=== PATIENT | female | born 1955 | race Caucasian/White ===

== ENCOUNTER → 2017-10-10 09:46 | Outpatient (CLI) | payer BC, SELFPAY ==
[2017-10-10 12:14] LABS: Absolute Lymphocyte Count 1.46 X10^3/ul (0.83-4.51); Absolute Neutrophil Count 1.5 X10^3/uL (2.0-7.7); Basophil# 0.05 X10^3/uL; Basophil% 1.5 % (0-1); Hematocrit 38.6 % (37-47); Hemoglobin 12.7 g/dl (12.0-15.0); Lymphocyte # 1.46 X10^3/ul (4.0); Lymphocyte % 43.3 % (19-41); Mean Corp Hgb Conc 32.9 g/gl (32-36); Mean Corpuscular Hgb 29.7 pg (27.0-32.0); Mean Corpuscular Volume 90.4 fL (81-99); Mean Platelet Vol. 11.5 fl (6.2-12.0); Monocyte# 0.25 X10^3/uL; Monocyte% 7.4 % (0-10); Neutrophil # 1.51 X10^3/uL (2.7-7.7); Neutrophil % 44.8 % (47-70); Platelet Count 170 K/mm3 (150-450); RBC Distribution Width CV 12.7 % (11.6-14.6); RBC Distribution Width SD 41.8 fl (35.1-43.9); Red Blood Count 4.27 M/mm3 (4.2-5.4); White Blood Count 3.4 K/mm3 (4.4-11.0)
[2017-10-10 12:19] LABS: POSITIVE COUNT NO; POSITIVE DIFFERENTIAL NO; POSITIVE MORPHOLOGY NO
[2017-10-10 12:29] LABS: Anion Gap 8 (5-15); BUN 14 mg/dL (7-18); Chloride 104 mmol/L (98-107); Cholesterol 207 mg/dL (200); Creatinine, Serum 0.94 mg/dL (0.55-1.02); EST Glomerular Filtration Rate 65 mL/min (>60); Est Glom Filt Rate - Afr Amer 78 mL/min (>60); Glucose 93 mg/dL (74-106); High Density Lipoprotein 77 mg/dL; Potassium 3.8 mmol/L (3.5-5.1); Sodium Level 142 mmol/L (136-145); Triglycerides 61 mg/dL; Very Low Density Lipoprotein 12 mg/dL (5-40)
[2017-10-11 11:18] LABS: Hep C Antibodies <0.1 s/co ratio (0.0-0.9)
== END ==
PROVIDERS: Family Provider Family Medicine; PCP Family Medicine; Visit Provider Family Medicine
DX: Z00.00 Encounter for general adult medical examination without abnormal findings (principal); Z13.220 Encounter for screening for lipoid disorders
CPT/HCPCS: 36415; 80048; 80061; 85025; 86803

== ENCOUNTER → 2017-11-21 10:37 | Outpatient (CLI) | payer BC, SELFPAY ==
--- NOTE | 2017-11-21 10:39 | BI_ITS ---
MAMMOGRAPHY - BILATERAL SCREENING REASON FOR EXAM: Female, 62 years old. Routine annual screening examination. PERTINENT HISTORY: Non-contributory. TECHNIQUE: Digital bilateral breast cece (3D mammographic acquisition) in the CC and MLO projections. 2-D mediolateral oblique (MLO) and craniocaudad (CC) views of both breasts were obtained. CAD: Full Field Digital Mammography with Computer Added Detection was performed. COMPARISON: Comparison is made with prior study dated September 26, 2016 and September 23, 2015. FINDINGS: Breast Composition: The breasts are heterogeneously dense, which may obscure small masses. There are no dominant masses or suspicious calcifications. A tissue clip marker is seen within a 7.7 mm nodule in the inferior medial portion of the left breast. This is unchanged. No other significant abnormalities are identified. There has been no significant change since the prior study. BI/SCREENING MAMM (CAD), BILAT IMPRESSION: Stable bilateral screening mammogram. Yearly follow-up mammogram recommended. (A) ASSESSMENT CATEGORY: BIRADS Category 1: Negative. A letter regarding these results will be sent to the patient by the facility within 30 days. Approximately 10% of breast cancers are not detected by mammography. A normal mammogram should not delay biopsy of a clinically suspicious abnormality. [id number] Electronically Signed: Shan Campbell MD at 12:25 EDT Tel [phone], Service support ,
== END ==
PROVIDERS: Family Provider Family Medicine; PCP Family Medicine; Visit Provider Family Medicine
DX: Z12.31 Encounter for screening mammogram for malignant neoplasm of breast (principal)
CPT/HCPCS: 77063; 77067

== ENCOUNTER → 2018-01-06 09:04 | Outpatient (CLI) | payer BC, SELFPAY ==
[2018-01-06 10:24] LABS: Absolute Lymphocyte Count 2.03 X10^3/ul (0.83-4.51); Absolute Neutrophil Count 2.4 X10^3/uL (2.0-7.7); Basophil# 0.07 X10^3/uL; Basophil% 1.4 % (0-1); Eosinophil# 0.06 X10^3/uL; Eosinophils% 1.2 % (0-5); Hematocrit 39.6 % (37-47); Hemoglobin 13.3 g/dl (12.0-15.0); Lymphocyte # 2.03 X10^3/ul (4.0); Lymphocyte % 40.4 % (19-41); Mean Corp Hgb Conc 33.6 g/gl (32-36); Mean Corpuscular Hgb 30.5 pg (27.0-32.0); Mean Corpuscular Volume 90.8 fL (81-99); Mean Platelet Vol. 10.9 fl (6.2-12.0); Monocyte# 0.47 X10^3/uL; Monocyte% 9.4 % (0-10); Neutrophil # 2.38 X10^3/uL (2.7-7.7); Neutrophil % 47.4 % (47-70); Platelet Count 195 K/mm3 (150-450); RBC Distribution Width CV 12.8 % (11.6-14.6); RBC Distribution Width SD 41.8 fl (35.1-43.9); Red Blood Count 4.36 M/mm3 (4.2-5.4)
[2018-01-06 10:34] LABS: POSITIVE COUNT NO; POSITIVE DIFFERENTIAL NO; POSITIVE MORPHOLOGY NO
== END ==
PROVIDERS: Family Provider Family Medicine; PCP Family Medicine; Visit Provider Family Medicine
DX: D17.9 Benign lipomatous neoplasm, unspecified (principal)
CPT/HCPCS: 36415; 85025

== ENCOUNTER → 2018-08-13 14:34 | Outpatient (CLI) | payer BC, SELFPAY ==
--- NOTE | 2018-08-13 | LES_PTH ---
PATIENT: VALERY REINA LOC: [facility] U#:[id number] AGE/SX: 69/F ROOM: RE08/13/[address]: Dr. Donald Artis MD : 1955 BED: DIS: SPEC #: [id number] RECD: 08/13/18 14:30 STATUS: SHADI LEONEL #: [id number] SHIRLEY: 08/13/18 00:[address]: Donald Artis DEPT: SURGICAL PATHOLOGY RECD BY: Servando Squires ENTERED: 08/14/18 08:17 SP TYPE: Lesion OTHR DR: Dr. Francisco J Shelton MD Tissues: Skin of leg, NOS Procedures: Surgery Specimen Level IV HEADER OPERATION: Excision right thigh lesion PRE-OP DIAGNOSIS: Uncertain neoplasm leg TISSUE SUBMITTED: Right thigh tissue MICROSCOPIC DIAGNOSIS Skin lesion of right thigh, biopsy: Focal superficial basal cell carcinoma, completely excised. AM:judi 08/15/18 COMMENT The lesion measures <1 mm in greatest dimension. Clinical correlation is suggested. Case has been reviewed in consultation with Dr. Oneal who concurs with the above diagnosis. IDC:SJ MICROSCOPIC DESCRIPTION Slides are reviewed. GROSS DESCRIPTION Received in fixative is one container labeled with the patient's name and designated right thigh. The specimen consists of a dunn-white skin ellipse measuring 2.5 x 1 cm and up to 1 cm in thickness. The specimen is inked, serially sectioned and submitted entirely in two cassettes. Cassette 1 contains the tips of skin ellipse. / KENRICK:judi 08/14/18 TC:0 CPT: 85344
[2018-08-13 13:28] VITALS: BMI 25.4
== END ==
PROVIDERS: Family Provider Family Medicine; PCP Family Medicine; Referring Provider Surgery; Visit Provider Surgery
DX: C44.712 Basal cell carcinoma of skin of right lower limb, including hip (principal)
CPT/HCPCS: 88305

== ENCOUNTER → 2018-10-13 | Outpatient (CLI) | payer BC, SELFPAY ==
[2018-08-19 13:54] VITALS: BMI 25.4
[2018-10-13 10:24] LABS: Absolute Lymphocyte Count 1.52 X10^3/ul (0.83-4.51); Absolute Neutrophil Count 1.9 X10^3/uL (2.0-7.7); Basophil# 0.04 X10^3/uL; Eosinophil# 0.17 X10^3/uL; Eosinophils% 4.4 % (0-5); Hematocrit 36.2 % (37-47); Hemoglobin 11.8 g/dl (12.0-15.0); Lymphocyte # 1.52 X10^3/ul (4.0); Lymphocyte % 39.6 % (19-41); Mean Corp Hgb Conc 32.6 g/gl (32-36); Mean Corpuscular Hgb 29.1 pg (27.0-32.0); Mean Corpuscular Volume 89.2 fL (81-99); Mean Platelet Vol. 10.3 fl (6.2-12.0); Monocyte# 0.25 X10^3/uL; Monocyte% 6.5 % (0-10); Neutrophil # 1.86 X10^3/uL (2.7-7.7); Neutrophil % 48.5 % (47-70); Platelet Count 164 K/mm3 (150-450); RBC Distribution Width CV 13.2 % (11.6-14.6); RBC Distribution Width SD 42.7 fl (35.1-43.9); Red Blood Count 4.06 M/mm3 (4.2-5.4); White Blood Count 3.8 K/mm3 (4.4-11.0)
[2018-10-13 10:26] LABS: POSITIVE COUNT NO; POSITIVE DIFFERENTIAL NO; POSITIVE MORPHOLOGY NO
[2018-10-13 10:47] LABS: Anion Gap 2 (5-15); BUN 16 mg/dL (7-18); BUN/Creat Ratio 18.3 RATIO (10-20); Calcium,Total 8.3 mg/dL (8.5-10.1); Chloride 105 mmol/L (98-107); Cholesterol 203 mg/dL (200); Creatinine, Serum 0.88 mg/dL (0.55-1.02); EST Glomerular Filtration Rate 70 mL/min (>60); Est Glom Filt Rate - Afr Amer 84 mL/min (>60); Glucose 90 mg/dL (74-106); High Density Lipoprotein 69 mg/dL; Potassium 3.8 mmol/L (3.5-5.1); Sodium Level 139 mmol/L (136-145); Triglycerides 78 mg/dL; Very Low Density Lipoprotein 16 mg/dL (5-40)
[2018-10-13 10:53] LABS: Vitamin D,25 Hydroxy 21.7 ng/mL (29.95-100.01)
== END | disposition home or self-care (01) ==
LOC: MFPLAB 09:33
PROVIDERS: Family Provider Family Medicine; PCP Family Medicine; Visit Provider Family Medicine
DX: Z00.00 Encounter for general adult medical examination without abnormal findings (principal)
CPT/HCPCS: 36415; 80048; 80061; 82306; 85025

== ENCOUNTER → 2018-11-24 | Outpatient (CLI) | payer BC, SELFPAY ==
[2018-08-19 13:54] VITALS: BMI 25.4
--- NOTE | 2018-11-24 10:30 | BI_ITS ---
MAMMOGRAPHY - BILATERAL SCREENING REASON FOR EXAM: Female, 63 years old. Routine annual screening examination. PERTINENT HISTORY: Non-contributory. Remote left ultrasound-guided breast biopsy. TECHNIQUE: Digital bilateral breast israel (3D mammographic acquisition) in the CC and MLO projections. 2-D mediolateral oblique (MLO) and craniocaudad (CC) views of both breasts were obtained. CAD: Full Field Digital Mammography with Computer Added Detection was performed. COMPARISON: Comparison is made with prior study dated November 21, 2017 and September 26, 2016. FINDINGS: Breast Composition: The breasts are heterogeneously dense, which may obscure small masses. There are no dominant masses or suspicious calcifications. Once again, a tissue clip marker is seen within a 7.7 mm well-defined nodule in the inferior medial portion of the left breast. No other significant abnormalities are identified. There has been no significant change since the prior study. BI/SCREEN MAMM (CAD) W/ISRAEL BILAT IMPRESSION: Stable bilateral screening mammogram. Yearly follow-up mammogram recommended. (A) ASSESSMENT CATEGORY: BIRADS Category 2: Benign. A letter regarding these results will be sent to the patient by the facility within 30 days. Approximately 10% of breast cancers are not detected by mammography. A normal mammogram should not delay biopsy of a clinically suspicious abnormality. [id number] Electronically Signed: Shan Campbell, at 9:25 EDT , Service support ,
== END | disposition home or self-care (01) ==
LOC: OPBI 10:29
PROVIDERS: Family Provider Family Medicine; PCP Family Medicine; Referring Provider Family Medicine; Visit Provider Family Medicine
DX: Z12.31 Encounter for screening mammogram for malignant neoplasm of breast (principal)
CPT/HCPCS: 77063; 77067

== ENCOUNTER → 2019-02-24 | Outpatient (CLI) | payer BC, SELFPAY ==
[2018-08-19 13:54] VITALS: BMI 25.4
[2019-02-24 12:33] LABS: Absolute Lymphocyte Count 1.46 X10^3/uL (0.83-4.51); Absolute Neutrophil Count 1.9 X10^3/uL (2.0-7.7); Basophil# 0.07 X10^3/uL; Basophil% 1.8 % (0-1); Eosinophil# 0.18 X10^3/uL; Eosinophils% 4.6 % (0-5); Hematocrit 37.8 % (37-47); Hemoglobin 12.4 g/dL (12.0-15.0); Lymphocyte # 1.46 X10^3/ul (4.0); Lymphocyte % 37.1 % (19-41); Mean Corp Hgb Conc 32.8 g/dL (32-36); Mean Corpuscular Hgb 29.7 pg (27.0-32.0); Mean Corpuscular Volume 90.4 fL (81-99); Mean Platelet Vol. 11.5 fl (6.2-12.0); Monocyte# 0.37 X10^3/uL; Monocyte% 9.4 % (0-10); NRBC Flagged by Analyzer 0 % (0-5); Neutrophil # 1.85 X10^3/uL (2.7-7.7); Neutrophil % 46.8 % (47-70); Platelet Count 160 K/mm3 (150-450); RBC Distribution Width CV 12.3 % (11.6-14.6); RBC Distribution Width SD 40.6 fl (35.1-43.9); Red Blood Count 4.18 M/mm3 (4.2-5.4); White Blood Count 3.9 K/mm3 (4.4-11.0)
[2019-02-24 13:16] LABS: Vitamin D,25 Hydroxy 34.2 ng/mL (29.95-100.01)
== END | disposition home or self-care (01) ==
LOC: MFPLAB 09:39
PROVIDERS: Family Provider Family Medicine; PCP Family Medicine; Referring Provider Family Medicine; Visit Provider Family Medicine
DX: E55.9 Vitamin D deficiency, unspecified (principal)
CPT/HCPCS: 36415; 82306; 85025

== ENCOUNTER → 2019-10-16 09:15 | Outpatient (CLI) | payer BC, SELFPAY ==
[2018-08-19 13:54] VITALS: BMI 25.4
[2019-10-16 09:56] LABS: Absolute Lymphocyte Count 1.65 X10^3/uL (0.83-4.51); Absolute Neutrophil Count 1.9 X10^3/uL (2.0-7.7); Basophil# 0.07 X10^3/uL; Basophil% 1.7 % (0-1); Eosinophil# 0.12 X10^3/uL; Eosinophils% 2.9 % (0-5); Hematocrit 38.1 % (37-47); Hemoglobin 12.4 g/dL (12.0-15.0); Lymphocyte # 1.65 X10^3/ul (4.0); Lymphocyte % 40.2 % (19-41); Mean Corp Hgb Conc 32.5 g/dL (32-36); Mean Corpuscular Hgb 28.8 pg (27.0-32.0); Mean Corpuscular Volume 88.6 fL (81-99); Mean Platelet Vol. 10.5 fl (6.2-12.0); Monocyte# 0.38 X10^3/uL; Monocyte% 9.3 % (0-10); NRBC Flagged by Analyzer 0 % (0-5); Neutrophil # 1.87 X10^3/uL (2.7-7.7); Neutrophil % 45.7 % (47-70); Platelet Count 164 K/mm3 (150-450); RBC Distribution Width CV 12.2 % (11.6-14.6); RBC Distribution Width SD 39.7 fl (35.1-43.9); White Blood Count 4.1 K/mm3 (4.4-11.0)
[2019-10-16 10:34] LABS: Vitamin D,25 Hydroxy 41.4 ng/mL
[2019-10-16 10:41] LABS: ALB/GLOB Ratio 1.2 RATIO (0.9-2.4); AST(SGOT) 20 U/L (15-37); Alanine Aminotransfer ALT/SGPT 21 U/L (13-56); Albumin, Serum 3.7 g/dL (3.2-5.0); Alkaline Phosphatase 56 U/L (45-117); Anion Gap 5 (5-15); BUN 10 mg/dL (7-18); BUN/Creat Ratio 10.6 RATIO (10-20); Calcium,Total 9.4 mg/dL (8.5-10.1); Chloride 102 mmol/L (98-107); Cholesterol 232 mg/dL (200); Creatinine, Serum 0.94 mg/dL (0.55-1.02); EST Glomerular Filtration Rate 64 mL/min (>60); Est Glom Filt Rate - Afr Amer 77 mL/min (>60); Globulin 3.2 g/dL (2.2-4.2); Glucose 101 mg/dL (74-106); High Density Lipoprotein 69 mg/dL; Phosphorus 3.4 mg/dL (2.5-4.9); Potassium 3.4 mmol/L (3.5-5.1); Protein, Total 6.9 g/dL (6.4-8.2); Sodium Level 140 mmol/L (136-145); Thyroid Stim Hormone (TSH) 2.62 uIU/mL (0.358-3.74); Triglycerides 109 mg/dL; Very Low Density Lipoprotein 22 mg/dL (5-40)
== END ==
PROVIDERS: PCP Family Medicine; Referring Provider Family Medicine; Visit Provider Family Medicine
DX: Z01.419 Encounter for gynecological examination (general) (routine) without abnormal findings (principal); M85.80 Other specified disorders of bone density and structure, unspecified site
CPT/HCPCS: 36415; 80053; 80061; 82306; 84100; 84443; 85025

== ENCOUNTER → 2019-12-14 07:47 | Outpatient (CLI) | payer BC, SELFPAY ==
[2018-08-19 13:54] VITALS: BMI 25.4
--- NOTE | 2019-12-14 07:49 | BI_ITS ---
MAMMOGRAPHY - BILATERAL SCREENING 3-D TOMOSYNTHESIS REASON FOR EXAM: Female, 64 years old. Routine screening PERTINENT HISTORY: NO FM HX , LT U/S BX IN [facility] OFF[facility] 2012, HX OF HRT [id number]. TECHNIQUE: 2-D mammograms and 3-D Tomosynthesis of the breast (s) were performed. CAD was performed. COMPARISON: Multiple prior studies, the most recent from 11/24/2018 FINDINGS: The breast composition is heterogeneously dense that can obscure small breast masses. Scattered benign calcifications are seen. Left breast shows stable nodules including one which is undergone previous biopsy. Within the right breast, there is a new area of irregularity in the upper outer quadrant which needs further evaluation with spot compression views and ultrasound. A previously noted asymmetric density in the right retroglandular fat is unchanged. BI/SCREEN MAMM (CAD) W/ISRAEL BILAT IMPRESSION: New area of asymmetry in the upper-outer quadrant of the right breast needs further evaluation with spot compression views and ultrasound Left breast is stable and unchanged. ASSESSMENT CATEGORY: BIRADS Category 0: Incomplete. Need additional imaging evaluation as above. A letter regarding these results will be sent to the patient by the facility within 30 days. FOLLOW UP RECOMMENDATION: Additional imaging recommended as above. (E) Approximately 10% of breast cancers are not detected by mammography. A normal mammogram should not delay biopsy of a clinically suspicious abnormality. Electronically Signed: Yadiel Camacho MD at 10:21 EDT , Service support ,
== END ==
PROVIDERS: PCP Family Medicine; Referring Provider Family Medicine; Visit Provider Family Medicine
DX: Z12.31 Encounter for screening mammogram for malignant neoplasm of breast (principal)
CPT/HCPCS: 77063; 77067

== ENCOUNTER → 2019-12-16 13:31 | Outpatient (CLI) | payer BC, SELFPAY ==
[2018-08-19 13:54] VITALS: BMI 25.4
--- NOTE | 2019-12-16 13:33 | BI_ITS ---
MAMMOGRAPHY - UNILATERAL DIAGNOSTIC: RIGHT BREAST REASON FOR EXAM: Female, 64 years old. RT AV''S - NO FAM HX - LT U/S BX 2012 PERTINENT HISTORY: Non-contributory. TECHNIQUE: Digital examination. Mediolateral oblique (MLO) and craniocaudad (CC) views of the breast were obtained. CAD: CAD was performed on this study. COMPARISON: Mammogram from 12/14/2019 FINDINGS: Breast Composition: The breasts are heterogeneously dense, which may obscure small masses. Previously described nodule in the upper outer quadrant of the right breast persists on spot compression views and further evaluation of this area with ultrasound is recommended. BI/DIAG MAMM W/CAD, UNILAT IMPRESSION: Further ultrasonographic evaluation recommended, as described above. Recall Side: Right Breast ASSESSMENT CATEGORY: BIRADS Category 0: Incomplete. Need additional imaging evaluation. A letter regarding these results will be sent to the patient by the facility within 30 days. FOLLOW-UP RECOMMENDATION: Ultrasound recommended. (I) Approximately 10% of breast cancers are not detected by mammography. A normal mammogram should not delay biopsy of a clinically suspicious abnormality. Electronically Signed: Yadiel Camacho MD at 14:49 EDT , Service support ,
--- NOTE | 2019-12-16 13:33 | US_ITS ---
STUDY: ULTRASOUND BREAST - RIGHT REASON FOR EXAM: Female, 64 years old. Abnormal mammogram TECHNIQUE: Axial and longitudinal images of the RIGHT breast were performed with a high resolution ultrasound transducer. # OF IMAGES: 36 COMPARISON: None. FINDINGS: RIGHT Breast: Ultrasound evaluation of the right breast, in the upper-outer quadrant, shows only normal dense fibroglandular tissue. There is no suspicious shadowing solid lesion, architectural distortion, or clustered calcifications. US/Breast Limited Unilateral IMPRESSION: No suspicious sonographic findings. ASSESSMENT CATEGORY: BIRADS Category 2: Benign. A letter regarding these results will be sent to the patient by the facility within 30 days. Electronically Signed: Yadiel Camacho MD at 14:49 EDT , Service support ,
== END ==
PROVIDERS: PCP Family Medicine; Referring Provider Family Medicine; Visit Provider Family Medicine
DX: R92.8 Other abnormal and inconclusive findings on diagnostic imaging of breast (principal)
CPT/HCPCS: 76642; 77065

== ENCOUNTER 2020-04-08 08:25 | Day surgery (SDC) | payer BC, SELFPAY ==
[2018-08-19 13:54] VITALS: BMI 25.4
[2020-04-08 08:49] VITALS: BP 140/72; PULSE 55; RESP 16; TEMP 37.1; O2SAT 100; BMI 25.0
--- NOTE | 2020-04-08 08:49 | PCM.HP.STD ---
Problem List (1) Screening for intestinal cancer Status: Acute History of Present Illness Date of Admission: 04/08/20 The patient is a 64 year old F who presents for screening colonoscopy today. Her previous one was 10 years ago. She denies any abdominal pain bright red blood per rectum or melena. No chest pain cough fever. 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 Allergies latex Allergy (Unknown, Verified 03/29/20 10:38) Unknown meperidine [From Demerol] Allergy (Unknown, Verified 03/29/20 10:38) Unknown terbinafine [From Lamisil] Allergy (Unknown, Verified 03/29/20 10:38) Unknown Home Medications: Ambulatory Orders Medication Instructions Recorded calcium citrate 1,000 mg tablet 250 mg PO 4X/DAY tab 08/05/18 erythromycin 5 mg/gram (0.5 %) eye 1 applic OPHTHALMIC DAILY PRN 08/05/18 ointment multivitamin 1 tab PO DAILY 08/05/18 omeprazole 40 mg capsule,delayed 40 mg PO DAILY 08/05/18 release triamterene 37.5 1 cap PO DAILY 08/05/18 mg-hydrochlorothiazide 25 mg capsule Cholecalciferol (Vitamin D3) 2,000 unit PO DAILY 03/29/20 [Vitamin D3] Surgical History: Surgical History (Last Reviewed 08/13/18 @ 12:47 by Elizabeth Page) History of Mohs micrographic surgery for skin cancer (Acute) Z85.828, Z98.890 Right upper eye Hx of shoulder surgery (Acute) Z98.890 Right shoulder- 2002 Hx of hysterectomy (Acute) Z90.710 1991 Hx of eye surgery (Acute) Z98.890 tear gland- 1979 Smoking Status: Never smoker Tobacco Use: Non-smoker Review of Systems Constitutional: Denies: Fever HEENT: Denies: Difficulty Swallowing Cardiovascular: Denies: Chest Pain Respiratory: Denies: Cough Gastrointestinal: Denies: Abdominal Pain, Melena Endocrine: Denies: Change in Body Habitus VTE Information - Inpt Only VTE Present on Admission: No - Physical Exam Vitals/I&O's: Body Mass Index (BMI) 25.4 General: Alert, Oriented x3, Cooperative HEENT: Atraumatic Oral: Moist Mucosa Neck: Supple Lungs: Clear to auscultation, Normal air movement Cardiovascular: Regular rate, Regular Rhythm Abdomen: Bowel Sounds Present, Soft, Non Tender Extremities: No Calf Tenderness Psych/Mental Status: Normal Affect Assessment/Plan All Active Problems (Last Reviewed 08/13/18 @ 12:47 by Elizabeth Page) Screening for intestinal cancer (Acute) Skin cancer (Acute) History of Mohs micrographic surgery for skin cancer (Acute) Hx of shoulder surgery (Acute) Hx of hysterectomy (Acute) Hx of eye surgery (Acute) SOB (shortness of breath) (Acute) Anemia (Acute) Acid reflux (Acute) Ocular rosacea (Acute) Patient presents for screening colonoscopy today. She is aware of the technique, benefit, risk, alternatives. She has had an opportunity to ask and have questions answered. She presents via open access. We will proceed at her discretion. Donald Artis M.D., F.A.C.S. Procedure Criteria Procedure Type: Elective COVID Risk Discussion: The surgeon/proceduralist and patient have discussed in detail the risk of exposure to and/or potential harm posed by the COVID-19 virus with having a surgery/procedure at this time versus the risk of delaying the surgery/procedure. It is not possible to know either the risk of delaying the surgery or procedure or chance of getting an infection with perfect accuracy, but a joint decision was made between the patient and the surgeon/proceduralist to proceed at this time with the scheduled surgery/procedure as indicated on the consent form.
[2020-04-08] MEDS: Lactated Ringers 1,000 ML 100 ML IV (09:01)
[2020-04-08 09:55] VITALS: BP 112/62; BP 140/72; PULSE 63; RESP 18; TEMP 36.2; O2SAT 100
--- NOTE | 2020-04-08 09:56 | OP.CCLET_ITS ---
04/08/2020 Francisco J Lozano [address] [place] [address] Re : Colonoscopy procedure for Olivia Orozco Dear Dr. Lozano This procedure was performed on Wednesday, April 08, 2020. My impressions and recommendations are as follows: Impressions : - Hemorrhoids found on perianal exam. - The entire examined colon is normal. - No specimens collected. Recommendations : - Discharge patient to home. - Resume previous diet. - Continue present medications. - Repeat colonoscopy in 10 years for screening purposes. My findings are described in the full procedure note, which is enclosed. If I can be of further assistance, please feel free to contact me at Doctor phone number(s): Work: . Sincerely, Donald Artis MD 04/08/2020 9:55:57 AM This report has been signed electronically.
--- NOTE | 2020-04-08 09:56 | OP.COLON_ITS ---
Patient Name: Olivia Orozco Procedure Date: 04/08/2020 9:34 AM Date of : 1955 Age: 64 Procedure: Colonoscopy Indications: Screening for colorectal malignant neoplasm Providers: Donald Artis MD Referring MD: Francisco J Lozano Medicines: See the Anesthesia note for documentation of the administered medications Patient Profile: Last Colonoscopy: 10 years ago. Complications: No immediate complications. Procedure: Pre-Anesthesia Assessment: - Prior to the procedure, a History and Physical was performed, and patient medications and allergies were reviewed. The patient's tolerance of previous anesthesia was also reviewed. The risks and benefits of the procedure and the sedation options and risks were discussed with the patient. All questions were answered, and informed consent was obtained. Prior Anticoagulants: The patient has taken no previous anticoagulant or antiplatelet agents. ASA Grade Assessment: II - A patient with mild systemic disease. After reviewing the risks and benefits, the patient was deemed in satisfactory condition to undergo the procedure. After I obtained informed consent, the scope was passed under direct vision. Throughout the procedure, the patient's blood pressure, pulse, and oxygen saturations were monitored continuously. The Colonoscope was introduced through the anus and advanced to the cecum, identified by appendiceal orifice and ileocecal valve. The colonoscopy was performed without difficulty. The patient tolerated the procedure well. The quality of the bowel preparation was good. The ileocecal valve and the appendiceal orifice were photographed. Scope In: 9:39:51 AM Scope Withdrawal Time 0 hours 6 minutes 46 seconds Scope Out: 9:50:31 AM Total Procedure Duration Time 0 hours 10 minutes 40 seconds Findings: Hemorrhoids were found on perianal exam. The colon (entire examined portion) appeared normal. Impression: - Hemorrhoids found on perianal exam. - The entire examined colon is normal. - No specimens collected. Recommendation: - Discharge patient to home. - Resume previous diet. - Continue present medications. - Repeat colonoscopy in 10 years for screening purposes. Procedure Code(s): --- Professional --- 39040, Colonoscopy, flexible; diagnostic, including collection of specimen(s) by brushing or washing, when performed (separate procedure) Diagnosis Code(s): --- Professional --- Z12.11, Encounter for screening for malignant neoplasm of colon K64.9, Unspecified hemorrhoids CPT copyright 2017 [employer]. All rights reserved. The codes documented in this report are preliminary and upon head strength and conditioning coach review may be revised to meet current compliance requirements. Donald Artis MD 04/08/2020 9:55:57 AM This report has been signed electronically. Number of Addenda: 0 Note Initiated On: 04/08/2020 9:34 AM
[2020-04-08 10:00] VITALS: BP 116/74; BP 140/72; PULSE 60; RESP 18; O2SAT 100
[2020-04-08 10:04] VITALS: BP 113/68; BP 140/72; PULSE 56; RESP 18; O2SAT 100
[2020-04-08 10:10] VITALS: BP 118/69; BP 140/72; PULSE 53; RESP 18; TEMP 36.2; O2SAT 100
[2020-04-08 10:15] VITALS: BP 140/72
== END 2020-04-08 10:24 | disposition home health service (06) ==
LOC: EN 08:26 → AC 08:28
PROVIDERS: PCP Family Medicine; Referring Provider Family Medicine; Visit Provider Surgery
PROC: 0DJD8ZZ Inspection of Lower Intestinal Tract, Via Natural or Artificial Opening Endoscopic (ICD-10-PCS; CPT 45378; principal; 2020-04-08 09:25)
DX: Z12.11 Encounter for screening for malignant neoplasm of colon (principal); K64.9 Unspecified hemorrhoids; Z11.59 Encounter for screening for other viral diseases; I10 Essential (primary) hypertension; K21.9 Gastro-esophageal reflux disease without esophagitis; G25.81 Restless legs syndrome; Z78.0 Asymptomatic menopausal state; Z86.2 Personal history of diseases of the blood and blood-forming organs and certain disorders involving the immune mechanism; Z85.828 Personal history of other malignant neoplasm of skin; Z79.899 Other long term (current) drug therapy
CPT/HCPCS: 45378; 87635; C9803; J7120; J2405; U0003

== ENCOUNTER → 2020-10-10 09:17 | Outpatient (CLI) | payer BC, SELFPAY ==
[2020-10-10 12:53] LABS: Vitamin D,25 Hydroxy 31.3 ng/mL
[2020-10-10 13:02] LABS: Anion Gap 6 (5-15); BUN 14 mg/dL (7-18); BUN/Creat Ratio 15.9 RATIO (10-20); Calcium,Total 9.1 mg/dL (8.5-10.1); Chloride 102 mmol/L (98-107); Cholesterol 227 mg/dL (200); Creatinine, Serum 0.88 mg/dL (0.55-1.02); EST Glomerular Filtration Rate 69 mL/min (>60); Est Glom Filt Rate - Afr Amer 83 mL/min (>60); Glucose 82 mg/dL (74-106); High Density Lipoprotein 64 mg/dL; Magnesium 2.2 mg/dL (1.6-2.6); Potassium 3.9 mmol/L (3.5-5.1); Sodium Level 138 mmol/L (136-145); Triglycerides 121 mg/dL; Very Low Density Lipoprotein 24 mg/dL (5-40)
== END ==
PROVIDERS: PCP Family Medicine; Visit Provider Family Medicine
DX: Z01.419 Encounter for gynecological examination (general) (routine) without abnormal findings (principal)
CPT/HCPCS: 36415; 80048; 80061; 82306; 83735

== ENCOUNTER → 2020-12-27 11:14 | Outpatient (CLI) | payer BC, SELFPAY ==
--- NOTE | 2020-12-27 11:18 | BI_ITS ---
MAMMOGRAPHY - BILATERAL SCREENING REASON FOR EXAM: Female, 65 years old. Routine annual screening examination. PERTINENT HISTORY: Non-contributory. TECHNIQUE: Digital bilateral breast israel (3D mammographic acquisition) in the CC and MLO projections. 2-D mediolateral oblique (MLO) and craniocaudad (CC) views of both breasts were obtained. CAD: Full Field Digital Mammography with Computer Added Detection was performed. COMPARISON: Comparison is made with prior study dated 12/14/2019 and 11/24/2018. FINDINGS: Breast Composition: The breasts are heterogeneously dense, which may obscure small masses. There are no dominant masses or suspicious calcifications. No other significant abnormalities are identified. There has been no significant change since the prior study. BI/SCRN MAMM (CAD)W/ISRAEL BILAT IMPRESSION: Stable bilateral screening mammogram. Yearly follow-up mammogram recommended. (A) ASSESSMENT CATEGORY: BIRADS Category 1: Negative. A letter regarding these results will be sent to the patient by the facility within 30 days. Approximately 10% of breast cancers are not detected by mammography. A normal mammogram should not delay biopsy of a clinically suspicious abnormality. [id number] Electronically Signed: Shan Campbell MD at 12:11 EDT , Service support ,
== END ==
PROVIDERS: PCP Family Medicine; Referring Provider Family Medicine; Visit Provider Family Medicine
DX: Z12.31 Encounter for screening mammogram for malignant neoplasm of breast (principal)
CPT/HCPCS: 77063; 77067

== ENCOUNTER 2021-07-20 10:48 | Outpatient (CLI) | payer MEDICARE, OTHER, SELFPAY ==
--- NOTE | 2021-07-20 11:00 | BD_ITS ---
STUDY: DUAL ENERGY X-RAY ABSORPTIOMETRY / DXA REASON FOR EXAM: Female, 66 years old. Z780. Patient is postmenopausal. TECHNIQUE: Bone Mineral Density (BMD) measurements of lumbar spine and bilateral hips were obtained. COMPARISON: Comparison is made with prior study of 09/15/2013. FINDINGS: Lumbar Spine (L1-L4): g/cm2 (0.727) / T-score (-2.9) / Z-score (-1.1) Findings are suggestive of osteoporosis with a high fracture risk. Left Femur Total: g/cm2 (0.704) / T-score (-1.9) / Z-score (-0.7) Left Femoral Neck: g/cm2 (0.581) / T-score (-2.4) / Z-score (-0.9) Right Femur Total: g/cm2 (0.694) / T-score (-2.0) / Z-score (-0.8) Right Femoral Neck: g/cm2 (0.569) / T-score (-2.5) / Z-score (-1.0) The T-Scores on the most recent prior examination were: Lumbar Spine (L1-L4): There has been worsening of bone density since the previous examination. Left Femur Total: which represents an improvement of 1.7%. Right Femur Total: which represents a worsening of 1.4%. BD/Dexa Bone Density Study IMPRESSION: The patient is considered osteoporotic as outlined below according to [employer] [place] Organization (WHO) criteria with a high fracture risk. There has been worsening of bone density since the previous examination. Reference Information: The T-score is the number of standard deviations above or below the standard which is normal for young adults at their peak bone mineral density. The World Health Organization (WHO) interprets the T-scores as follows: Above -1 Normal bone density Between -1 and -2.5 Osteopenia Equal to / or below -2.5 Osteoporosis As a practical clinical guideline, osteopenia may be graded as follows: Mild -1 through -1.5 Moderate -1.6 through -2.0 Severe -2.1 through -2.4 The Z-score is the number of standard deviations above or below age-matched controls. A Z-score of less than -1.5 would be considered abnormal. References: 1. NIH Osteoporosis and Related Bone Diseases www osteo.org 2. International Society for Clinical Densitometry www iscd.org 3. National Osteoporosis Foundation www nof.org Electronically Signed: Shan Campbell MD at 15:32 EST ,
== END 2021-07-20 23:59 | disposition short-term general hospital (02) ==
PROVIDERS: PCP Family Medicine; Referring Provider Family Medicine; Visit Provider Family Medicine
DX: Z78.0 Asymptomatic menopausal state (principal)
CPT/HCPCS: 77080

== ENCOUNTER 2021-07-26 06:15 | Outpatient (CLI) | payer MEDICARE, OTHER, SELFPAY ==
--- NOTE | 2021-07-26 13:17 | STRESSREP ---
Stress Test Report Exercise myocardial perfusion stress test. 66-year-old lady with a history of abnormal EKG. Stress protocol: Resting KG demonstrates sinus bradycardia with a rate of 53 bpm resting blood pressure is 160/82 mmHg. The patient exercised according to the regular Umesh protocol for total duration of 5 minutes and 31 seconds. The maximum heart rate attained was 146 bpm which was 94% of max impact at heart rate the maximum workload was 7 metabolic equivalents. At rest there were no ST or T wave changes noted to suggest ischemia and at peak exercise 1.[address] depression was noted in the inferior lateral leads. The ST changes became more downsloping during recovery. No clinical angina was noted the test was terminated due to attainment of target heart rate and dyspnea. The peak blood pressure was 176/90 mmHg. Rate-pressure product was 25,700. Myocardial perfusion protocol. 11.5 mCi of technetium 99m sestamibi was injected at rest. The patient exercised according to regular Umesh protocol for 5-1/2 minutes and at peak exercise 34.5 mCi of technetium 99m sestamibi was injected stress images were obtained stress and rest images were reconstructed and compared in the short axis vertical long and horizontal long axis. Gated images were also obtained per Perfusion SPECT analysis: Review of the stress images demonstrate normal uptake of tracer noted in all areas of the myocardium. The resting images similarly demonstrate normal uptake of tracer in all areas of the myocardium. A small portion of apical ischemia cannot be completely excluded however. No previous infarct is noted. Gated SPECT analysis: The gated ejection fraction is 69%. Conclusion: Exercise myocardial perfusion stress test with no nuclear images notable for obvious ischemia. EKG changes suggestive of ischemia. Shortness of breath of uncertain significance noted.
== END 2021-07-26 23:59 | disposition short-term general hospital (02) ==
LOC: CVS 06:16
PROVIDERS: PCP Family Medicine; Referring Provider Family Medicine; Visit Provider Family Medicine
DX: R94.31 Abnormal electrocardiogram [ECG] [EKG] (principal)
CPT/HCPCS: 78452; 93017; A9500; A4216

== ENCOUNTER 2021-07-28 14:47 | Outpatient (CLI) | payer MEDICARE, OTHER, SELFPAY ==
--- NOTE | 2021-07-28 14:55 | RAD_ITS ---
STUDY: X-RAY CHEST REASON FOR EXAM: Female, 66 years old. Dyspnea TECHNIQUE: PA and lateral views of the chest. COMPARISON: None. FINDINGS: The lungs are clear and expanded. There is no demonstrated pleural abnormality. Normal size heart. Normal mediastinum and carlos eduardo. Normal visualized pulmonary arteries. Normal visualized aortic arch and descending thoracic aorta. There is demineralization of the osseous structures. Normal visualized ribs, clavicles, and shoulders. There is no demonstrated abnormality of the visualized soft tissue structures of the upper abdomen. RAD/Chest PA and Lateral IMPRESSION: No acute abnormality is seen. Electronically Signed: Shan Campbell MD at 16:03 [facility] ,
== END 2021-07-28 23:59 | disposition home or self-care (01) ==
LOC: RAD 14:49
PROVIDERS: PCP Family Medicine; Referring Provider Internal Medicine Cardiovascular Disease; Visit Provider Internal Medicine Cardiovascular Disease
DX: R94.39 Abnormal result of other cardiovascular function study (principal); R94.31 Abnormal electrocardiogram [ECG] [EKG]; R06.00 Dyspnea, unspecified; E78.5 Hyperlipidemia, unspecified
CPT/HCPCS: 71046

== ENCOUNTER 2021-08-03 06:41 | Day surgery (SDC) | payer MEDICARE, OTHER, SELFPAY ==
[2021-07-28 15:54] LABS: Absolute Lymphocyte Count 2.27 X10^3/uL (0.83-4.51); Basophil# 0.05 X10^3/uL; Basophil% 0.7 % (0-1); Eosinophil# 0.05 X10^3/uL; Eosinophils% 0.7 % (0-5); Hematocrit 39.1 % (37-47); Hemoglobin 13.2 g/dL (12.0-15.0); Lymphocyte # 2.27 X10^3/ul (0.83-4.51); Lymphocyte % 33.1 % (19-41); Mean Corp Hgb Conc 33.8 g/dL (32-36); Mean Corpuscular Hgb 30.2 pg (27.0-32.0); Mean Corpuscular Volume 89.5 fL (81-99); Mean Platelet Vol. 10.7 fl (6.2-12.0); Monocyte# 0.51 X10^3/uL; Monocyte% 7.4 % (0-10); NRBC Flagged by Analyzer 0 % (0-5); Neutrophil # 3.97 X10^3/uL (2.7-7.7); Platelet Count 215 K/mm3 (150-450); RBC Distribution Width CV 11.9 % (11.6-14.6); RBC Distribution Width SD 39.1 fl (35.1-43.9); Red Blood Count 4.37 M/mm3 (4.2-5.4); White Blood Count 6.9 K/mm3 (4.4-11.0)
[2021-07-28 16:21] LABS: Anion Gap 7 (5-15); BUN 13 mg/dL (7-18); Calcium,Total 9.6 mg/dL (8.5-10.1); Chloride 100 mmol/L (98-107); EST Glomerular Filtration Rate 59 mL/min (>60); Est Glom Filt Rate - Afr Amer 72 mL/min (>60); Glucose 105 mg/dL (74-106); Potassium 3.3 mmol/L (3.5-5.1); Sodium Level 138 mmol/L (136-145)
[2021-08-02 07:58] VITALS: BMI 28.5
[2021-08-03 07:00] LABS: Potassium 4.3 mmol/L (3.5-5.1)
--- NOTE | 2021-08-03 08:20 | CL.D_ITS ---
Patient Name: VALERY REINA Study Date: 08/03/2021 Performing: Emre Castro MD Ht: 63 inches 160 cm : 1955 Wt: 161.1 lbs 73 kg Age: 66 Gender: female BSA: 1.76 PROCEDURE(S) PERFORMED DC01-([id number])LHC/COR/LV CLINICAL PROFILE AND INDICATIONS Indications: Suspected CAD Heart Failure: None Stress/Imaging Date: 07/26/20ress Test with SPECT MPI: Positive Low Risk CAD Presentations: Symptom unlikely to be ischemic. CONCLUSIONS Normal coronary arteries Normal LV size, wall motion,and systolic function RECOMMENDATIONS Medical therapy DESCRIPTION OF PROCEDURE The patient arrived to the procedure lab. The risks and benefits of the procedure as well as a full d escription of our services here and current unavailability of surgical backup were fully explained to the patient and/or their significant other prior to the catheterization. The Timeout was completed, verifying the correct patient and procedure. The patient's procedural site was prepped and draped in the usual fashion. Local anesthetic was given subcutaneously to right radial region with Lidocaine 2% . Using a modified Seldinger technique, arterial access was obtained via the right radial artery, a 6 Fr sheath was inserted. Left Coronary Artery selective angiography was performed in multiple views u sing a 5 Fr. 4.0 Christine catheter. Right Coronary Artery selective angiography was then performed in mu ltiple views using a 5 Fr. 4.0 Christine catheter. Left Ventriculography was performed in SHOOK projection using a 5 Fr. Pigtail catheter. LV to AO pullback pressures were then recorded.The arterial sheath was pulled and a TR Band was applied for hemostasis w/ 9ml air CORONARY ANGIOGRAPHY DOMINANCE: Right Dominant LEFT HEART ASSESSMENT Left Ventricular Ejection Fraction: by LV Gram 60 % Normal LV wall motion Normal Left Ventricular systolic function Normal Left Ventricular systolic function LEFT MAIN: Angiographically normal LEFT ANTERIOR DESCENDING ARTERY: Angiographically normal CIRCUMFLEX ARTERY: Angiographically normal RIGHT CORONARY ARTERY: Angiographically normal COMPLICATIONS No Complications PROCEDURE MEDICATIONS Versed 1 mg IV Fentanyl 50 mcg IV Oxygen: 2 L/min via nasal cannula Heparin given IA 08/03/2021 08:01:12 Verapamil 2.5mg, Ntg 100mcgs, 3000 units of Heparin given IA 08/03/2021 08:01:12 SUMMARY OF HEMODYNAMIC DATA Time AIR REST ECG 07:02:29 Art 159/66 (100) 07:55:05 AO 142/69 (97) SA 08:03:05 LV 146/3, 18 08:09:31 LV 144/6, 17 08:09:38 LV 130/10, 20 08:10:07 LV 130/9, 19 08:10:13 LVp 136/9, 20 08:10:17 AOp 121/-21 (70) 08:10:22 Signed By Emre Castro MD On 08/03/2021 08:20:12 Emre Castro MD
== END 2021-08-03 23:59 | disposition home or self-care (01) ==
LOC: CLSP 06:43
PROVIDERS: PCP Family Medicine; Referring Provider Internal Medicine Cardiovascular Disease; Visit Provider Internal Medicine Cardiovascular Disease
DX: R94.39 Abnormal result of other cardiovascular function study (principal); R06.00 Dyspnea, unspecified; K21.9 Gastro-esophageal reflux disease without esophagitis; E78.5 Hyperlipidemia, unspecified; H81.09 Meniere's disease, unspecified ear; Z85.828 Personal history of other malignant neoplasm of skin; Z79.899 Other long term (current) drug therapy
CPT/HCPCS: 36415; 80048; 84132; 85025; 93458; 99152; 99153; J7040; C1769; C1894; Q9967

== ENCOUNTER 2021-08-14 09:19 | Outpatient (CLI) | payer MEDICARE, OTHER, SELFPAY ==
[2021-08-14 09:23] LABS: Bacteria 0 SEEN /hpf (None Seen); Mucous, Urine 0 SEEN /hpf (<or=2+); Red Blood Cells-Urine 0 SEEN /hpf (0-5); Squamous Epithelial Cells - UA 0 SEEN /hpf (5-10); White Blood Cells 0 SEEN /hpf (0-5)
[2021-08-14 12:12] LABS: Absolute Lymphocyte Count 1.46 X10^3/uL (0.83-4.51); Absolute Neutrophil Count 2.4 X10^3/uL (2.0-7.7); Basophil# 0.06 X10^3/uL; Basophil% 1.4 % (0-1); Eosinophil# 0.08 X10^3/uL; Eosinophils% 1.8 % (0-5); Hematocrit 38.2 % (37-47); Hemoglobin 12.8 g/dL (12.0-15.0); Lymphocyte # 1.46 X10^3/ul (0.83-4.51); Lymphocyte % 32.9 % (19-41); Mean Corp Hgb Conc 33.5 g/dL (32-36); Mean Corpuscular Volume 89.5 fL (81-99); Mean Platelet Vol. 10.8 fl (6.2-12.0); Monocyte# 0.42 X10^3/uL; Monocyte% 9.5 % (0-10); NRBC Flagged by Analyzer 0 % (0-5); Neutrophil % 53.9 % (47-70); Platelet Count 202 K/mm3 (150-450); RBC Distribution Width SD 38.9 fl (35.1-43.9); Red Blood Count 4.27 M/mm3 (4.2-5.4); White Blood Count 4.4 K/mm3 (4.4-11.0)
[2021-08-14 12:12] LABS: Color, Urine Yellow (Yellow); Glucose, Dipstick Normal (Normal); Ketone-Dipstick Negative (Negative); Leukocyte Esterase-Dipstick Negative /ul (Negative); Nitrite-Dipstick Negative (Negative); Occult Blood-Urine Negative /ul (Negative); Protein-Dipstick Negative (Negative); Specific Gravity, Urine 1.005 (1.002-1.030); Urine Bilirubin Dipstick Negative (Negative); Urine Clarity Clear (Clear); Urine Urobilinogen Normal (Normal)
[2021-08-14 12:33] LABS: ALB/GLOB Ratio 1.1 RATIO (0.9-2.4); AST(SGOT) 23 U/L (15-37); Alanine Aminotransfer ALT/SGPT 27 U/L (13-56); Albumin, Serum 3.6 g/dL (3.2-5.0); Alkaline Phosphatase 81 U/L (45-117); Anion Gap 5 (5-15); BUN 18 mg/dL (7-18); BUN/Creat Ratio 20.2 RATIO (10-20); Calcium,Total 8.9 mg/dL (8.5-10.1); Chloride 99 mmol/L (98-107); Cholesterol 203 mg/dL (200); Creatinine, Serum 0.89 mg/dL (0.55-1.02); EST Glomerular Filtration Rate 67 mL/min (>60); Est Glom Filt Rate - Afr Amer 82 mL/min (>60); Globulin 3.4 g/dL (2.2-4.2); Glucose 95 mg/dL (74-106); High Density Lipoprotein 57 mg/dL; Potassium 3.4 mmol/L (3.5-5.1); Sodium Level 137 mmol/L (136-145); Thyroid Stim Hormone (TSH) 2.79 uIU/mL (0.358-3.74); Triglycerides 152 mg/dL; Very Low Density Lipoprotein 30 mg/dL (5-40)
[2021-08-14 12:38] LABS: Vitamin D,25 Hydroxy 39.2 ng/mL
[2021-08-14 13:08] LABS: Hemoglobin A1c 5.9 % (3.8-5.6)
== END 2021-08-14 23:59 | disposition home or self-care (01) ==
LOC: MFPLAB 09:20
PROVIDERS: PCP Family Medicine; Visit Provider Family Medicine
DX: K21.9 Gastro-esophageal reflux disease without esophagitis (principal); E55.9 Vitamin D deficiency, unspecified; R73.09 Other abnormal glucose; E78.00 Pure hypercholesterolemia, unspecified; I10 Essential (primary) hypertension; M81.0 Age-related osteoporosis without current pathological fracture
CPT/HCPCS: 36415; 80053; 80061; 81001; 82306; 83036; 84443; 85025

== ENCOUNTER 2021-08-28 06:26 | Outpatient (CLI) | payer MEDICARE, OTHER, SELFPAY ==
--- NOTE | 2021-08-28 06:38 | MRI_ITS ---
STUDY: MRI BRAIN WITH AND WITHOUT CONTRAST REASON FOR EXAM: Female, 66 years old. benign neoplasm of meninges TECHNIQUE: Standardized multiplanar fat and water weighted pulse sequences were obtained. IV 15ml Dotarem was administered for the contrast portion of the examination. COMPARISON: 04/07/2016 FINDINGS: Normal size of the ventricles and extra-axial spaces for the patient''s age. Normal white matter tracts of the supratentorial brain. There is no evidence for recent intracranial ischemia or other cause of cytotoxic edema on diffusion weighted imaging (DWI). Normal T2* images of the brain without demonstrated susceptibility artifact. There is no demonstrated hemosiderin stain. Normal bilateral basal ganglia. Normal thalami. There is no extra-axial fluid accumulation. Normal flow voids within the major intracranial circulation suggesting patency by spin echo criteria. Normal venous enhancement. There is no change in 1.5 cm oval isointense solidly enhancing mass adjacent to the inferior left parietal lobe consistent with a meningioma. Normal sella turcica, pituitary gland, infundibular stalk, optic chiasm and hypothalamus. Normal tectal plate and pineal gland. Normal midbrain, lucia and medulla. Normal cerebellum. Normal basal cisterns. Normal bilateral temporal bones. Normal bilateral internal auditory canals. No demonstrated orbital abnormality, within the constraints of a routine brain study. Normal visualized paranasal sinuses. Normal calvarium and skull base. Normal visualized soft tissue structures. Normal visualized upper cervical spine. MRI/Brain W/WO Contrast IMPRESSION: No change in 1.5 cm left parietal meningioma. Electronically Signed: Dakotah Negro MD at 8:34 EST ,
== END 2021-08-28 23:59 | disposition home or self-care (01) ==
LOC: MRI 06:29
PROVIDERS: PCP Family Medicine; Referring Provider Family Medicine; Visit Provider Family Medicine
DX: D32.9 Benign neoplasm of meninges, unspecified (principal)
CPT/HCPCS: 70553; A9575

== ENCOUNTER → 2022-02-12 | Outpatient (CLI) | payer MEDICARE, OTHER, SELFPAY ==
--- NOTE | 2022-02-12 08:58 | BI_ITS ---
MAMMOGRAPHY - BILATERAL SCREENING REASON FOR EXAM: Female, 66 years old. Routine annual screening examination. PERTINENT HISTORY: Non-contributory. TECHNIQUE: Digital bilateral breast israel (3D mammographic acquisition) in the CC and MLO projections. 2-D mediolateral oblique (MLO) and craniocaudad (CC) views of both breasts were obtained. CAD: Full Field Digital Mammography with Computer Added Detection was performed. COMPARISON: Comparison is made with prior study dated 12/27/2020 and 12/16/2019. FINDINGS: Breast Composition: The breasts are heterogeneously dense, which may obscure small masses. There is a 7.7 mm well-defined nodule in the deep inferior medial aspect of the left breast. A tissue clip is seen within. No other significant abnormalities are identified. There has been no significant change since the prior study. BI/SCRN MAMM (CAD)W/ISRAEL BILAT IMPRESSION: Stable bilateral screening mammogram. Yearly follow-up mammogram recommended. (A) ASSESSMENT CATEGORY: BIRADS Category 2: Benign. A letter regarding these results will be sent to the patient by the facility within 30 days. Approximately 10% of breast cancers are not detected by mammography. A normal mammogram should not delay biopsy of a clinically suspicious abnormality. [id number] Electronically Signed: Shan Campbell MD at 9:43 EDT ,
== END | disposition home or self-care (01) ==
LOC: OPBI 08:56
PROVIDERS: PCP Family Medicine; Visit Provider Family Medicine
DX: Z12.31 Encounter for screening mammogram for malignant neoplasm of breast (principal)
CPT/HCPCS: 77063; 77067

== ENCOUNTER → 2022-02-13 | Outpatient (CLI) | payer MEDICARE, OTHER, SELFPAY ==
[2022-02-13 10:31] LABS: Absolute Lymphocyte Count 1.49 X10^3/uL (0.83-4.51); Absolute Neutrophil Count 1.7 X10^3/uL (2.0-7.7); Basophil# 0.05 X10^3/uL; Basophil% 1.3 % (0-1); Eosinophil# 0.16 X10^3/uL; Eosinophils% 4.3 % (0-5); Hematocrit 38.7 % (37-47); Hemoglobin 12.6 g/dL (12.0-15.0); Lymphocyte # 1.49 X10^3/ul (0.83-4.51); Lymphocyte % 39.9 % (19-41); Mean Corp Hgb Conc 32.6 g/dL (32-36); Mean Corpuscular Hgb 29.3 pg (27.0-32.0); Mean Platelet Vol. 10.9 fl (6.2-12.0); Monocyte# 0.35 X10^3/uL; Monocyte% 9.4 % (0-10); NRBC Flagged by Analyzer 0 % (0-5); Neutrophil # 1.67 X10^3/uL (2.7-7.7); Neutrophil % 44.8 % (47-70); Platelet Count 189 K/mm3 (150-450); RBC Distribution Width CV 13.2 % (11.6-14.6); White Blood Count 3.7 K/mm3 (4.4-11.0)
[2022-02-13 10:42] LABS: Bacteria 0 SEEN /hpf (None Seen); Mucous, Urine 0 SEEN /hpf (<or=2+); Red Blood Cells-Urine 0 SEEN /hpf (0-5)
[2022-02-13 10:56] LABS: Hemoglobin A1c 5.9 % (3.8-5.6)
[2022-02-13 11:01] LABS: Vitamin D,25 Hydroxy 33.7 ng/mL
[2022-02-13 11:05] LABS: ALB/GLOB Ratio 1.2 RATIO (0.9-2.4); AST(SGOT) 18 U/L (15-37); Alanine Aminotransfer ALT/SGPT 20 U/L (13-56); Albumin, Serum 3.7 g/dL (3.2-5.0); Alkaline Phosphatase 51 U/L (45-117); Anion Gap 4 (5-15); BUN 12 mg/dL (7-18); BUN/Creat Ratio 12.2 RATIO (10-20); Calcium,Total 9.7 mg/dL (8.5-10.1); Chloride 103 mmol/L (98-107); Cholesterol 209 mg/dL (200); Creatinine, Serum 0.98 mg/dL (0.55-1.02); EST Glomerular Filtration Rate 60 mL/min (>60); Est Glom Filt Rate - Afr Amer 73 mL/min (>60); Glucose 81 mg/dL (74-106); High Density Lipoprotein 67 mg/dL; Magnesium 2.4 mg/dL (1.6-2.6); Protein, Total 6.7 g/dL (6.4-8.2); Sodium Level 139 mmol/L (136-145); Triglycerides 103 mg/dL; Very Low Density Lipoprotein 21 mg/dL (5-40)
[2022-02-13 12:26] LABS: Color, Urine Yellow (Yellow); Glucose, Dipstick Normal (Normal); Ketone-Dipstick Negative (Negative); Leukocyte Esterase-Dipstick 100 /ul (Negative); Nitrite-Dipstick Negative (Negative); Occult Blood-Urine Negative /ul (Negative); Protein-Dipstick Negative (Negative); Specific Gravity, Urine 1.005 (1.002-1.030); Urine Bilirubin Dipstick Negative (Negative); Urine Clarity Sl. Cloudy (Clear); Urine Urobilinogen Normal (Normal)
[2022-02-13 12:35] LABS: Squamous Epithelial Cells - UA 0-5 SEEN /hpf (5-10); White Blood Cells 10-25 SEEN /hpf (0-5)
[2022-02-13 12:50] LABS: Microalbumin,Random Urine < 5.0 mg/L (NO RANGE EST.)
== END | disposition home or self-care (01) ==
LOC: MFPLAB 08:51
PROVIDERS: PCP Family Medicine; Visit Provider Family Medicine
DX: I10 Essential (primary) hypertension (principal); R73.02 Impaired glucose tolerance (oral); K21.9 Gastro-esophageal reflux disease without esophagitis; M81.0 Age-related osteoporosis without current pathological fracture; E78.00 Pure hypercholesterolemia, unspecified
CPT/HCPCS: 36415; 80053; 80061; 81001; 82043; 82306; 83036; 83735; 85025

== ENCOUNTER 2022-12-28 15:49 | Outpatient (CLI) | payer MEDICARE, OTHER, SELFPAY | END 2022-12-28 23:59 | disposition home or self-care (01) | LOC: LABSPEC 15:52 | PROVIDERS: PCP Family Medicine; Referring Provider Family Medicine; Visit Provider Family Medicine | DX: R30.0 Dysuria (principal); J02.9 Acute pharyngitis, unspecified | CPT/HCPCS: 87077; 87086; 87088; 87186 ==

== ENCOUNTER → 2023-01-15 | Outpatient (CLI) | payer MEDICARE, OTHER, SELFPAY ==
--- NOTE | 2023-01-15 11:42 | RAD_ITS ---
STUDY: X-RAY CHEST REASON FOR EXAM: Female, 67 years old. Cough. TECHNIQUE: Frontal and lateral views of the chest. COMPARISON: Chest dated July 2021. FINDINGS: The lungs are clear and expanded. There is no demonstrated pleural abnormality. Normal size heart. Normal mediastinum and carlos eduardo. Normal visualized pulmonary arteries. Normal visualized aortic arch and descending thoracic aorta. Normal visualized thoracic spine. Normal visualized ribs, clavicles, and shoulders. No abnormality of the visualized soft tissue structures of the upper abdomen. RAD/Chest PA and Lateral IMPRESSION: No interval change. No active or acute cardiopulmonary disease. Electronically Signed: Eliecer Youngblood MD at 14:36 EDT ,
[2023-01-15 15:30] LABS: Absolute Lymphocyte Count 3.74 X10^3/uL (0.83-4.51); Absolute Neutrophil Count 4.3 X10^3/uL (2.0-7.7); Basophil# 0.09 X10^3/uL; Eosinophil# 0.07 X10^3/uL; Eosinophils% 0.8 % (0-5); Hemoglobin 13.3 g/dL (12.0-15.0); Lymphocyte # 3.74 X10^3/ul (0.83-4.51); Lymphocyte % 41.1 % (19-41); Mean Corp Hgb Conc 31.7 g/dL (32-36); Mean Corpuscular Hgb 29.2 pg (27.0-32.0); Mean Corpuscular Volume 92.3 fL (81-99); Mean Platelet Vol. 10.8 fl (6.2-12.0); Monocyte% 8.8 % (0-10); NRBC Flagged by Analyzer 0 % (0-5); Neutrophil # 4.28 X10^3/uL (2.7-7.7); Platelet Count 273 K/mm3 (150-450); RBC Distribution Width CV 12.6 % (11.6-14.6); Red Blood Count 4.55 M/mm3 (4.2-5.4); White Blood Count 9.1 K/mm3 (4.4-11.0)
[2023-01-15 15:56] LABS: ALB/GLOB Ratio 1.1 RATIO (0.9-2.4); AST(SGOT) 17 U/L (15-37); Alanine Aminotransfer ALT/SGPT 20 U/L (13-56); Albumin, Serum 3.6 g/dL (3.2-5.0); Alkaline Phosphatase 56 U/L (45-117); Anion Gap 7 (5-15); BUN 18 mg/dL (7-18); BUN/Creat Ratio 16.1 RATIO (10-20); Chloride 99 mmol/L (98-107); Creatinine, Serum 1.12 mg/dL (0.55-1.02); EST Glomerular Filtration Rate 52 mL/min (>60); Est Glom Filt Rate - Afr Amer 63 mL/min (>60); Globulin 3.4 g/dL (2.2-4.2); Glucose 92 mg/dL (74-106); Potassium 3.1 mmol/L (3.5-5.1); Sodium Level 137 mmol/L (136-145); Thyroid Stim Hormone (TSH) 2.51 uIU/mL (0.358-3.74)
== END | disposition home or self-care (01) ==
LOC: MTLAB 11:38
PROVIDERS: PCP Family Medicine; Referring Provider Family Medicine; Visit Provider Family Medicine
DX: R05.8 Other specified cough (principal); R22.1 Localized swelling, mass and lump, neck; R73.03 Prediabetes
CPT/HCPCS: 36415; 71046; 80053; 83036; 84443; 85025

== ENCOUNTER → 2023-03-01 | Outpatient (CLI) | payer MEDICARE, OTHER, SELFPAY ==
[2023-03-01 10:17] LABS: Anion Gap 3 (5-15); BUN 14 mg/dL (7-18); BUN/Creat Ratio 13.7 RATIO (10-20); Chloride 102 mmol/L (98-107); Creatinine, Serum 1.02 mg/dL (0.55-1.02); EST Glomerular Filtration Rate 58 mL/min (>60); Est Glom Filt Rate - Afr Amer 70 mL/min (>60); Glucose 104 mg/dL (74-106); Potassium 3.5 mmol/L (3.5-5.1); Sodium Level 138 mmol/L (136-145)
== END | disposition home or self-care (01) ==
LOC: MFPLAB 08:51
PROVIDERS: PCP Family Medicine; Visit Provider Family Medicine
DX: I10 Essential (primary) hypertension (principal)
CPT/HCPCS: 36415; 80048

== ENCOUNTER → 2023-03-06 | Outpatient (CLI) | payer MEDICARE, OTHER, SELFPAY ==
--- NOTE | 2023-03-06 10:03 | BI_ITS ---
MAMMOGRAPHY - BILATERAL SCREENING REASON FOR EXAM: Female, 67 years old. Routine annual screening examination. PERTINENT HISTORY: Non-contributory. Prior right ultrasound-guided breast biopsy. TECHNIQUE: Digital bilateral breast israel (3D mammographic acquisition) in the CC and MLO projections. 2-D mediolateral oblique (MLO) and craniocaudad (CC) views of both breasts were obtained. CAD: Full Field Digital Mammography with Computer Added Detection was performed. COMPARISON: Comparison is made with prior study February 12, 2022 and December 27, 2020. FINDINGS: Breast Composition: The breasts are heterogeneously dense, which may obscure small masses. There are no dominant masses or suspicious calcifications. A tissue clip marker is once again seen within a 7.4 mm well-defined nodule in the deep inferior medial aspect of the left breast. No other significant abnormalities are identified. There has been no significant change since the prior study. BI/SCRN MAMM (CAD)W/ISRAEL BILAT IMPRESSION: Stable bilateral screening mammogram. Yearly follow-up mammogram recommended. (A) ASSESSMENT CATEGORY: BIRADS Category 2: Benign. A letter regarding these results will be sent to the patient by the facility within 30 days. Approximately 10% of breast cancers are not detected by mammography. A normal mammogram should not delay biopsy of a clinically suspicious abnormality. [id number] Electronically Signed: Shan Campbell MD at 11:12 EDT ,
== END | disposition home or self-care (01) ==
LOC: OPBI 10:02
PROVIDERS: PCP Family Medicine; Referring Provider Family Medicine; Visit Provider Family Medicine
DX: Z12.31 Encounter for screening mammogram for malignant neoplasm of breast (principal)
CPT/HCPCS: 77063; 77067

== ENCOUNTER → 2023-05-20 | Outpatient (CLI) | payer MEDICARE, OTHER, SELFPAY ==
--- NOTE | 2023-05-20 15:25 | ST.MBS ---
Modified Barium Swallow Patient Information Study Date: 05/20/23 Study Time: 13:00 Direct Billable Minutes: 75 Total Minutes procedure & reportin Diagnosis: Dysphagia R13.10, GERD K21.9 Referring Physician: Donald Artis Reason for Referral: Objectively assess swallow function, assess risk for aspiration, and determine recommendations for least restrictive diet textures and compensatory strategies to improve safety of swallow. Medical History: PMH: Abnormal nuclear stress test (07/26/21), Anemia, Dysphagia, HTN, GERD, HLD, Meniere syndrome, Ocular rosacea, Screening for intestinal cancer, Skin cancer (basal cell carcinoma removed from face 6X per patient), SOB (shortness of breath). The patient is a 67-year-old female being seen by Dr. Artis for GERD. She recently weaned off of her GERD medications due to her concerns for the negative long-term effects of these medications. After weaning off the medication, she began to quickly feel retention of foods return. She feels that they get hung up at the level of her chest. She feels that liquids go down well. Dr. Artis is recommending EGD with possible biopsy due to concerns for eosinophilic esophagitis. First, she has been referred for MBSS to further assess swallow function. Current Diet Ordered: Regular textures / Thin liquids Dentition: Natural Teeth Mental Status: WNL Respiratory Status: Oxygenating on Room Air Penetration-Aspiration Scale Penetration-Aspiration Scale: OBJECTIVE ASSESSMENT OF SWALLOW FUNCTION (QUANTITATIVE ? PER TRIAL): PENETRATION / ASPIRATION SCALE (BANKS): 1 = does not enter airway 2 = enters airway/above vocal folds/ejected 3 = enters airway/above vocal folds/not ejected 4 = enters airway/contacts vocal folds/ejected 5 = enters airway/contacts vocal folds/not ejected 6 = enters airway/below vocal folds/ejected 7 = enters airway/below vocal folds/not ejected despite effort 8 = enters airway/below vocal folds/no effort VIDEOFLOROSCOPIC SCALE SCORE (BANKS): Grade I = aspiration of material that has penetrated into the laryngeal vestibule, intact cough reflex Grade II = aspiration < 10 % of the bolus, intact cough reflex Grade III = aspiration of < 10 % of the bolus, reduced cough reflex or aspiration of > 10 % of the bolus, intact cough reflex Grade IV = aspiration of > 10 % of the bolus, reduced cough reflex Penetration-Aspiration Scale Score Thin Liquid via teaspoon: Result: 1= does not enter airway Thin Liquid via teaspoon Trial 2: Result: 1= does not enter airway Thin Liquid via large single sip: cup: Result: 1= does not enter airway Thin Liquid via sequential sips: cup: Result: 1= does not enter airway Comment: ESOPHAGEAL SCREEN: Retrograde flow of thin liquid bolus from the lower esophageal sphincter to the mid esophagus with retention in the mid-lower esophagus. [place] Thick Liquid via large single sip: cup: Result: 1= does not enter airway Pudding via teaspoon: Result: 1= does not enter airway Comment: ESOPHAGEAL SCREEN: Complete clearance. 1/2 Cookie with barium pudding coating: Result: 1= does not enter airway Comment: ESOPHAGEAL SCREEN: Complete clearance. Thin Liquid via single sip: straw: Result: 1= does not enter airway Oral Phase Labial Seal: No Labial Escape Tongue Control During Bolus Hold: Cohesive bolus between tongue to palatal seal Bolus Preparation/Mastication: Timely and efficient chewing and mashing Bolus Transport/Lingual Motion: Brisk tongue motion Oral Residue: Residue collection on oral structures (piecemeal deglutition with large sips) Pharyngeal Phase Initiation of Pharyngeal Swallow: Bolus head in pyriforms (mildly/nectar thick) Soft Palate Elevation: No bolus between soft palate and pharyngeal wall Laryngeal Elevation: Comp. Superior move thyroid cart w/comp. apprx arytenoid cart-epig pet Anterior Hyoid Excursion: Complete anterior movement Epiglottic Movement: Complete inversion Laryngeal Vestibule Closure at Height of Swallow: Complete; no air/contrast in laryngeal vestibule Pharyngeal Stripping Wave: Present - complete Pharyngoesophageal Segment Opening: Complete distension and complete duration; no obstruction of flow Tongue Base Retraction: Trace column of contrast between tongue base & post. pharyngeal wall Pharyngeal Residue: Trace residue within or on pharyngeal structures Esophageal Phase Esophageal Clearance: Esophageal retention w/ retrograde flow below pharyngoesophageal seg. Diagnosis/Impression Diagnosis: Oropharyngeal swallow function grossly WNL, Esophageal dysphagia R13.14 Impression: The patient's oropharyngeal swallow is grossly WNL. She independently consumes large sips requiring two swallows to clear them from the oral cavity; however, swallow onset with thin liquids is timely and, throughout all trials, she maintained good airway closure during the swallow. No aspiration or laryngeal penetration observed. Trace pharyngeal residues after the swallow. The esophageal phase is primarily marked by... -Retrograde flow of thin barium through the lower esophageal sphincter with retention in the mid and lower esophagus. -Small C-P bar present at C5, which did not appear to impact bolus clearance through the upper esophageal sphincter. Recommendations Diet: Regular Textures and Thin Liquids Compensatory Strategies: Small Bites, Small Sips, Slow Rate, Sitting upright and Remain sitting upright for 30 minutes after PO intake Recommend Repeat Modified Barium Swallow: No Need for Skilled Speech Therapy Services: No Recommended Referrals: GI Consult (Continue to follow with Dr. Artis for planned EGD.) Education Completed: 1. Described result of evaluation. Status Active ST Patient: Active Contact Information [facility] Speech Therapy:: Amberly Ruiz M.A. [facility] [employer] TECHNICIAN Speech-Language Pathologist [facility] [address] [place] [address] [email or web address] [phone]
== END | disposition home or self-care (01) ==
LOC: RAD 12:46
PROVIDERS: PCP Family Medicine; Referring Provider Surgery; Visit Provider Surgery
DX: R13.10 Dysphagia, unspecified (principal)
CPT/HCPCS: 74230; 92611

== ENCOUNTER 2023-06-20 09:20 | Day surgery (SDC) | payer MEDICARE, OTHER, SELFPAY ==
[2023-06-20] VITALS (8 sets, daily range): BP systolic 87–139; BP diastolic 56–84; PULSE 55–62; RESP 16; TEMP 36–36.8; O2SAT 96–100; BMI 28.5
[2023-06-20] MEDS: Lactated Ringers 1,000 ML 15 ML IV (09:42)
--- NOTE | 2023-06-20 09:56 | PCM.HP.BLA ---
History and Physical Date of Admission: 06/20/23 Visit Reasons: Gastroesophageal reflux disease (GERD) Chief Complaint: GERD Is patient in pain?: No Allergies latex Allergy (Unknown, Verified 05/08/23 08:23) Rashmeperidine [From Demerol] Allergy (Unknown, Verified 05/08/23 08:23) Nausea/Vom/Diarrheaterbinafine [From Lamisil] Allergy (Unknown, Verified 05/08/23 08:23) Rashlosartan Adverse Reaction (Intermediate, Verified 05/08/23 08:23) Chest tightness, urinary frequency/incontinence Medications calcium citrate 1,000 mg tablet 250 mg PO 4X/DAY 08/05/18 [History Confirmed 05/08/23] erythromycin 5 mg/gram (0.5 %) eye ointment 1 applic ophthalmic (eye) DAILY PRN roseca 08/05/18 [History Confirmed 05/08/23] multivitamin 1 tab PO DAILY 08/05/18 [History Confirmed 05/08/23] triamterene 37.5 mg-hydrochlorothiazide 25 mg capsule (Dyazide) 1 cap PO DAILY 08/05/18 [History Confirmed 05/08/23] cholecalciferol (vitamin D3) 50 mcg (2,000 unit) capsule 2,000 unit PO DAILY 03/29/20 [History Confirmed 05/08/23] alendronate 70 mg tablet (Fosamax) 70 mg PO QWEEK 05/08/23 [History Confirmed 05/08/23] omeprazole 40 mg capsule,delayed release 20 mg PO DAILY 05/08/23 [History Confirmed 05/08/23] [facility] Medical History (Updated 05/08/23 @ 08:33 by Rahel Mcmillan) Abnormal nuclear stress test (07/26/21) Anemia Dysphagia Essential hypertension GERD (gastroesophageal reflux disease) Hyperlipidemia Meniere syndrome Ocular rosacea Screening for intestinal cancer Skin cancer SOB (shortness of breath) Surgical History History of colonoscopy (2019) History of esophageal dilatation History of esophagogastroduodenoscopy (EGD) History of left heart catheterization (08/03/21) History of Mohs micrographic surgery for skin cancer Hx of eye surgery Hx of hysterectomy Hx of shoulder surgery Family History (Updated 05/08/23 @ 08:15 by Lois Ferrell) Mother Heart disease Hypertension Thyroid disorder CVA (cerebral vascular accident) High cholesterolFather COPD (chronic obstructive pulmonary disease)Brother Diabetes Social History Smoking Status: Never smoker second hand exposure: No alcohol intake: current alcohol intake frequency: a few times a month substance use type: does not use caffeine: Yes what type of physical activity do you participate in: walking and running frequency: 5-6 times per week duration: 30-45 minutes/day seatbelt use: always HPI HPI HPI: 67-year-old female is being referred by Dr Francisco J Lozano for surgical consultation regarding gastroesophageal reflux disease and a written copy my surgical consult recommendations will return to him. It is of note that I assisted the patient most recently April 08, 2020 with a colonoscopy demonstrating mild hemorrhoids but otherwise a normal colon. Patient states that she has perhaps had 3 or even 4 upper endoscopies in the past. Remotely she was seen by roll clamp operator Carlo Pruitt but then has had other gastroenterology care more recently. She states and she describes eosinophils and multiple rings. Does not appear however that she was treated with Flonase or referred to an government program manager to identify the potential food group. She has been on a PPI omeprazole for 15 years at least. She tried cutting back from 40 mg to 20 mg successfully and then she tried in February to going every other day and then March she tried to stop and immediately had recurrence of symptoms with food getting caught. She states that she has previously had to have balloon dilatation as well. No bright red blood per rectum or melena. No unexpected weight loss. She states if anything she is slowly gained 6 or 7 pounds. She states she had a heart catheterization last year not demonstrating any critical disease but diffusely small vessels. She states she otherwise enjoys good health. Denies DVT. ROS General General: No weight change, appetite, fatigue, colon cancer, breast cancer or weakness HEENT HEENT: Yes difficulty swallowing; No eye injury, eye surgery, swollen glands or hoarseness Endo Endocrine: No thyroid disease, diabetes mellitus, thyroid cancer, Hair loss, heat intolerance or cold intolerance Skin Skin: Yes changing moles; No rash Musc Musculoskeletal: Yes arthritis; No back problems, rheumatoid arthritis, gout or joint pain Cardio Cardiovascular: No murmur, pacemaker, heart disease, atrial fibrillation, high blood pressure, heart attack, heart stent, palpitations, shortness of breat with exertion or chest pain Psych Psychiatric: No depression, anxiety or hearing voices Resp Respiratory: Yes shortness of breath, No sleep apnea, No cough, No COPD, No asthma, No emphysema and No wheezing Gastro Gastrointestinal: No abdominal pain, No nausea or vomiting, No diarrhea, Yes constipation, No blood in stool, Yes acid reflux, No hemorrhoids, No ulcers, No gallbladder problem and No black,tarry stools Gino Hematologic: No blood thinners, No blood disorders, No bleeding, No anemia and No blood clots Neuro Neurologic: No system reviewed and no additional complaints, except as documented, No as per HPI, No abnormal gait, No abnormal hearing, No abnormal movements, No abnormal speech, No behavioral changes, No burning sensations, No confusion, No convulsions, No disequilibrium, No dizziness, No localized weakness, No frequent falls, No headache(s), No lack of coordination, No loss of vision, No memory loss, No numbness, No other visual disturbances, No radicular pain, No restless legs, No sensory deficit, No syncope, No tingling, No tremor(s), No weakness and No other Exam Const General: cooperative, healthy appearing, comfortable and no acute distress [facility] Head: normal to inspection Eyes General: appearance normal, both eyes and all related structures Neck Neck: normal visual inspection Resp Effort & Inspection: normal respiratory effort Auscultation: clear to auscultation bilaterally Cardio Rate: regular rate Rhythm: regular rhythm GI Inspection: normal to inspection Palpation: soft and no hepatosplenomegaly Musc Cervical Spine: normal cervical lordosis Skin General: no rashes or lesions noted Neuro General: patient alert, patient awake and patient oriented x3 Extrem General: no calf tenderness Psych Appearance: grossly normal Assessment and Plan Assessment and Plan (1) GERD (gastroesophageal reflux disease): Status: Acute Qualifiers: Esophagitis presence: esophagitis presence not specified Qualified Code(s): K21.9 - Gastro-esophageal reflux disease without esophagitis Plan: The patient's discussion sounds like she has eosinophilic esophagitis. I am recommending to that we obtain a barium swallow for definition of this area. I then do propose for her a esophagogastroduodenoscopy with possible biopsy. In great detail however I did discuss with her the potential risk of dilatation in the presence of eosinophilic esophagitis. We would want to approach that with caution. I do not want her to have excess inflammation occurring and so she has been instructed to return to her normal omeprazole dosing in the short period. It may well be that she needs to remain on PPIs and potentially be treated with medication like Flonase and a swallow oral technique. Likely also recommend government program manager referral if eosinophilic esophagitis is identified. 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 She has had an opportunity to ask and have questions answered. I appreciate the opportunity of assisting with her surgical care and we will schedule and proceed as noted. Copy: Dr Francisco J Artis M.D., F.A.C.S. I have examined the patient and the H&P has been reviewed. There are no clinical changes since date of exam. Donald Artis M.D., F.A.C.S.
--- NOTE | 2023-06-20 10:30 | IMM_PTH ---
PATHOLOGY RESULTS PATIENT: VALERY REINA LOC: EN U#:[id number] AGE/SX: 67/F ROOM: RE06/20/[address]: Dr. Donald Artis MD : 1955 BED: DIS: 06/20/2023 SPEC #: [id number] RECD: 06/20/23 13:17 STATUS: SHADI REQ #: [id number] SHIRLEY: 06/20/23 10:[address]: Donald Artis DEPT: IMMUNOHISTOCHEMISTRY RECD BY: Charo Neff ENTERED: 06/20/23 13:18 SP TYPE: IMMUNO OTHR DR: Dr. Francisco J Lozano MD Tissues: Stomach, NOS Procedures: H Pylori (initial) PHYSICIAN & INSTITUTION [place] [id number] SPECIMEN INFORMATION: Tissue Source: B - Antrum Clinical Info: GERD Specimen Number: [id number] CPT code: 80239 METHODOLOGY: Deparaffinized sections of prefer/formalin-fixed tissue or PAP/DQ stained slides are incubated with monoclonal/polyclonal antibodies/oligonucleotide probes. Localization is made via biotin free immunoperoxidase method. Appropriate controls are performed and reacted as expected. Results on target cell population are indicated in the following table: RESULTS: ANTIBODY / CLONE RESULT Block B H Pylori (polyclonal) negative These tests were developed and their performance characteristics determined by [facility]. They may not have been cleared or approved by the U.S. Food and Drug Administration. The FDA has determined that such clearance or approval is not necessary. The above immunohistochemical/dualISH markers are ordered and reviewed by the Pathologist. INTERPRETATION: B. Antrum, biopsy: Negative for Helicobacter pylori organisms. SJ:judi 06/21/2023
--- NOTE | 2023-06-20 10:30 | EGD_PTH ---
PATHOLOGY RESULTS PATIENT: VALERY REINA LOC: EN U#:[id number] AGE/SX: 67/F ROOM: RE06/20/[address]: Dr. Donald Artis MD : 1955 BED: DIS: 06/20/2023 SPEC #: [id number] RECD: 06/20/23 12:31 STATUS: SHADI CASTANEDA #: [id number] SHIRLEY: 06/20/23 10:[address]: Donald Artis DEPT: SURGICAL PATHOLOGY RECD BY: Camila Erwin ENTERED: 06/20/23 12:33 SP TYPE: EGD BIOPSY OT DR: Dr. Francisco J Lozano MD Tissues: Duodenum, NOS Gastric mucous membrane Gastric mucous membrane Esophageal mucous membrane Esophageal mucous membrane Procedures: Surgery Specimen Level IV HEADER OPERATION: EGD with biopsies PRE-OP DIAGNOSIS: GERD TISSUE SUBMITTED: A - Duodenum biopsy, B - Antrum biopsy for H. pylori and path, C - Greater curvature polyp biopsy, D - Distal esophagus biopsy, E - Mid esophagus biopsy MICROSCOPIC DIAGNOSIS A. Duodenum, biopsy: A fragment of duodenal mucosa with mild Oswaldo gland hyperplasia. B. Antrum, biopsy: Mild gastritis. See microscopic description and comment. C. Greater curvature polyp, biopsy: Fundic gland polyp. D. Distal esophagus, biopsy: Fragments of squamous epithelium with focal congestion. E. Mid esophagus, biopsy: Fragments of benign squamous epithelium. SJ:judi 06/21/2023 COMMENT B. The results of immunohistochemistry for Helicobacter pylori will be reported separately ([id number]). MICROSCOPIC DESCRIPTION Slides are reviewed. B. The specimen shows fragments of gastric mucosa with chronic inflammatory cell infiltrates in the lamina propria consisting of lymphocytes and plasma cells, consistent with mild chronic gastritis. GROSS DESCRIPTION A - Received in fixative is one container labeled with the patient's name and designated duodenum biopsy. The specimen consists of one irregular fragment of light dunn soft tissue that measures 0.3 x 0.3 x 0.1 cm. The specimen is totally submitted in one cassette. B - Received in fixative is one container labeled with the patient's name and designated antrum biopsy. The specimen consists of one irregular fragment of light dunn soft tissue that measures 0.3 x 0.3 x 0.1 cm. The specimen is totally submitted in one cassette. C - Received in fixative is one container labeled with the patient's name and designated greater curvature polyp biopsy. The specimen consists of two irregular fragments of light dunn soft tissue that in aggregate measure 0.3 x 0.3 x 0.1 cm. The specimen is totally submitted in one cassette. D - Received in fixative is one container labeled with the patient's name and designated distal esophagus biopsy. The specimen consists of multiple irregular fragments of light dunn soft tissue that in aggregate measure 1.0 x 0.3 x 0.1 cm. The specimen is totally submitted in one cassette. E - Received in fixative is one container labeled with the patient's name and designated mid esophagus biopsy. The specimen consists of two irregular fragments of light dunn soft tissue that in aggregate measure 0.4 x 0.3 x 0.1 cm. The specimen is totally submitted in one cassette. / KENRICK:judi 06/20/2023 TC:3 CPT: 29155 x5
--- NOTE | 2023-06-20 10:44 | OP.EGD_ITS ---
Patient Name: Olivia Orozco Procedure Date: 06/20/2023 10:24 AM Date of : 1955 Age: 67 Procedure: Upper GI endoscopy Indications: Heartburn Providers: Donald Artis MD Referring MD: Donald Artis MD Medicines: See the Anesthesia note for documentation of the administered medications Complications: No immediate complications. Procedure: Pre-Anesthesia Assessment: - Prior to the procedure, a History and Physical was performed, and patient medications and allergies were reviewed. The patient's tolerance of previous anesthesia was also reviewed. The risks and benefits of the procedure and the sedation options and risks were discussed with the patient. All questions were answered, and informed consent was obtained. Prior Anticoagulants: The patient has taken no anticoagulant or antiplatelet agents. ASA Grade Assessment: II - A patient with mild systemic disease. After reviewing the risks and benefits, the patient was deemed in satisfactory condition to undergo the procedure. After obtaining informed consent, the endoscope was passed under direct vision. Throughout the procedure, the patient's blood pressure, pulse, and oxygen saturations were monitored continuously. The Endoscope was introduced through the mouth, and advanced to the second part of duodenum. The upper GI endoscopy was accomplished without difficulty. The patient tolerated the procedure well. Scope In: 10:31:44 AM Scope Out: 10:37:53 AM Total Procedure Duration Time 0 hours 6 minutes 9 seconds Findings: The middle third of the esophagus was normal. Biopsies were taken with a cold forceps for histology. The Z-line was regular and was found 37 cm from the incisors. Biopsies were taken with a cold forceps for histology. A 1 cm hiatal hernia was present. Multiple sessile polyps with no bleeding and no stigmata of recent bleeding were found on the greater curvature of the stomach. The polyp was removed with a cold biopsy forceps. Resection and retrieval were complete. Diffuse mildly erythematous mucosa without bleeding was found in the gastric antrum. Biopsies were taken with a cold forceps for histology. The examined duodenum was normal. Biopsies were taken with a cold forceps for histology. Impression: - Normal middle third of esophagus. Biopsied. - Z-line regular, 37 cm from the incisors. Biopsied. - 1 cm hiatal hernia. - Multiple gastric polyps. Resected and retrieved. - Erythematous mucosa in the antrum. Biopsied. - Normal examined duodenum. Biopsied. Findings appeared rather mild. Reason for food getting stuck not clear. I have the patient return the office in 1 week. Consider possible esophageal manometry Consider possible future surgical treatment of reflux though this most be thoughtful in light of food already getting stuck. Recommendation: - Await pathology results. - Discharge patient to home. - Resume previous diet. - Continue present medications. - Return to my office in 1 week. Procedure Code(s): --- Professional --- 25591, Esophagogastroduodenoscopy, flexible, transoral; with biopsy, single or multiple Diagnosis Code(s): --- Professional --- K44.9, Diaphragmatic hernia without obstruction or gangrene K31.7, Polyp of stomach and duodenum K31.89, Other diseases of stomach and duodenum R12, Heartburn CPT copyright 2021 [employer]. All rights reserved. The codes documented in this report are preliminary and upon elementary tutor review may be revised to meet current compliance requirements. Donald Artis MD 06/20/2023 10:44:08 AM This report has been signed electronically. Number of Addenda: 0 Note Initiated On: 06/20/2023 10:24 AM
--- NOTE | 2023-06-20 10:44 | OP.CCLET_ITS ---
06/20/2023 Francisco J Lozano [address] [place] [address] Re : Upper GI endoscopy procedure for Olivia Orozco Dear Dr. Lozano This procedure was performed on May. My impressions and recommendations are as follows: Impressions : - Normal middle third of esophagus. Biopsied. - Z-line regular, 37 cm from the incisors. Biopsied. - 1 cm hiatal hernia. - Multiple gastric polyps. Resected and retrieved. - Erythematous mucosa in the antrum. Biopsied. - Normal examined duodenum. Biopsied. Findings appeared rather mild. Reason for food getting stuck not clear. I have the patient return the office in 1 week. Consider possible esophageal manometry Consider possible future surgical treatment of reflux though this most be thoughtful in light of food already getting stuck. Recommendations : - Await pathology results. - Discharge patient to home. - Resume previous diet. - Continue present medications. - Return to my office in 1 week. My findings are described in the full procedure note, which is enclosed. If I can be of further assistance, please feel free to contact me at Doctor phone number(s): Work: . Sincerely, Donald Artis MD 06/20/2023 10:44:08 AM This report has been signed electronically.
== END 2023-06-20 11:44 | disposition home or self-care (01) ==
LOC: EN 09:21 → AC 09:22
PROVIDERS: PCP Family Medicine; Referring Provider Surgery; Visit Provider Surgery
PROC: 0DJ08ZZ Inspection of Upper Intestinal Tract, Via Natural or Artificial Opening Endoscopic (ICD-10-PCS; CPT 43235; principal; 2023-06-20 10:25)
DX: K21.9 Gastro-esophageal reflux disease without esophagitis (principal); I10 Essential (primary) hypertension; K31.7 Polyp of stomach and duodenum; K44.9 Diaphragmatic hernia without obstruction or gangrene; E78.5 Hyperlipidemia, unspecified; Z79.899 Other long term (current) drug therapy; Z90.710 Acquired absence of both cervix and uterus; K31.89 Other diseases of stomach and duodenum; K29.70 Gastritis, unspecified, without bleeding
CPT/HCPCS: 43239; 88305; 88342; J7120; J2405

== ENCOUNTER → 2023-06-27 | Outpatient (CLI) | payer MEDICARE, OTHER, SELFPAY ==
[2023-06-27 09:26] LABS: Bacteria 0 SEEN /hpf (None Seen); Mucous, Urine 0 SEEN /hpf (<or=2+); Red Blood Cells-Urine 0 SEEN /hpf (0-5); Squamous Epithelial Cells - UA 0 SEEN /hpf (5-10); White Blood Cells 0 SEEN /hpf (0-5)
[2023-06-27 10:31] LABS: Absolute Lymphocyte Count 1.81 X10^3/uL (0.83-4.51); Absolute Neutrophil Count 1.9 X10^3/uL (2.0-7.7); Basophil# 0.07 X10^3/uL; Basophil% 1.6 % (0-1); Eosinophil# 0.14 X10^3/uL; Eosinophils% 3.2 % (0-5); Hematocrit 40.9 % (37-47); Hemoglobin 13.1 g/dL (12.0-15.0); Lymphocyte # 1.81 X10^3/ul (0.83-4.51); Lymphocyte % 41.5 % (19-41); Mean Corpuscular Hgb 28.7 pg (27.0-32.0); Mean Corpuscular Volume 89.5 fL (81-99); Mean Platelet Vol. 10.5 fl (6.2-12.0); Monocyte% 9.2 % (0-10); NRBC Flagged by Analyzer 0 % (0-5); Neutrophil # 1.92 X10^3/uL (2.7-7.7); Platelet Count 202 K/mm3 (150-450); RBC Distribution Width CV 12.2 % (11.6-14.6); RBC Distribution Width SD 39.8 fl (35.1-43.9); Red Blood Count 4.57 M/mm3 (4.2-5.4); White Blood Count 4.4 K/mm3 (4.4-11.0)
[2023-06-27 10:43] LABS: Glucose, Dipstick Normal (Normal); Ketone-Dipstick Negative (Negative); Leukocyte Esterase-Dipstick 100 /ul (Negative); Nitrite-Dipstick Negative (Negative); Occult Blood-Urine 10 /ul (Negative); Protein-Dipstick Negative (Negative); Urine Bilirubin Dipstick Negative (Negative); Urine Urobilinogen Normal (Normal)
[2023-06-27 10:51] LABS: Color, Urine Yellow (Yellow)
[2023-06-27 10:52] LABS: Urine Clarity Clear (Clear)
[2023-06-27 10:56] LABS: Hemoglobin A1c 5.9 % (3.8-5.6)
[2023-06-27 10:57] LABS: Vitamin D,25 Hydroxy 40.9 ng/mL
[2023-06-27 11:22] LABS: ALB/GLOB Ratio 1.1 RATIO (0.9-2.4); AST(SGOT) 50 U/L (15-37); Alanine Aminotransfer ALT/SGPT 80 U/L (13-56); Albumin, Serum 3.5 g/dL (3.2-5.0); Alkaline Phosphatase 87 U/L (45-117); Anion Gap 7 (5-15); BUN 14 mg/dL (7-18); BUN/Creat Ratio 14.3 RATIO (10-20); Calcium,Total 8.4 mg/dL (8.5-10.1); Chloride 104 mmol/L (98-107); Cholesterol 234 mg/dL (200); Creatinine, Serum 0.98 mg/dL (0.55-1.02); EST Glomerular Filtration Rate 60 mL/min (>60); Est Glom Filt Rate - Afr Amer 73 mL/min (>60); Globulin 3.3 g/dL (2.2-4.2); Glucose 102 mg/dL (74-106); High Density Lipoprotein 65 mg/dL; Potassium 3.4 mmol/L (3.5-5.1); Protein, Total 6.8 g/dL (6.4-8.2); Sodium Level 140 mmol/L (136-145); Thyroid Stim Hormone (TSH) 2.73 uIU/mL (0.358-3.74); Triglycerides 120 mg/dL; Very Low Density Lipoprotein 24 mg/dL (5-40)
== END | disposition home or self-care (01) ==
LOC: MFPLAB 09:23
PROVIDERS: PCP Family Medicine; Visit Provider Family Medicine
DX: M81.0 Age-related osteoporosis without current pathological fracture (principal); I10 Essential (primary) hypertension; R73.02 Impaired glucose tolerance (oral)
CPT/HCPCS: 36415; 80053; 80061; 81001; 82306; 83036; 84443; 85025

== ENCOUNTER → 2023-07-02 | Outpatient (CLI) | payer MEDICARE, OTHER, SELFPAY ==
[2023-07-02 10:48] LABS: AST(SGOT) 28 U/L (15-37); Alanine Aminotransfer ALT/SGPT 47 U/L (13-56); Albumin, Serum 3.4 g/dL (3.2-5.0); Alkaline Phosphatase 85 U/L (45-117); Anion Gap 5 (5-15); BUN 14 mg/dL (7-18); BUN/Creat Ratio 13.9 RATIO (10-20); Calcium,Total 9.2 mg/dL (8.5-10.1); Chloride 106 mmol/L (98-107); Creatinine, Serum 1.01 mg/dL (0.55-1.02); EST Glomerular Filtration Rate 58 mL/min (>60); Est Glom Filt Rate - Afr Amer 70 mL/min (>60); Globulin 3.3 g/dL (2.2-4.2); Glucose 97 mg/dL (74-106); Potassium 3.6 mmol/L (3.5-5.1); Protein, Total 6.7 g/dL (6.4-8.2); Sodium Level 139 mmol/L (136-145)
[2023-07-02 14:20] LABS: Hepatitis B Surface Antibody Non-Reactive; Hepatitis B Surface Antigen Non-Reactive (Nonreactive); Hepatitis C Antibody Non-Reactive (Nonreactive)
== END | disposition home or self-care (01) ==
LOC: MFPLAB 09:38
PROVIDERS: PCP Family Medicine; Visit Provider Family Medicine
DX: R79.89 Other specified abnormal findings of blood chemistry (principal)
CPT/HCPCS: 36415; 80053; 86706; 86803; 87340

== ENCOUNTER 2023-07-05 09:15 | Day surgery (SDC) | payer MEDICARE, OTHER, SELFPAY ==
[2023-07-05 09:30] VITALS: BP 150/86; PULSE 61; RESP 16; TEMP 36.7
[2023-07-05] MEDS: Lidocaine Jelly 2% 20 ML Syringe (URO-JET) 1 APPLIC (09:40)
== END 2023-07-05 09:58 | disposition home or self-care (01) ==
LOC: EN 09:16
PROVIDERS: PCP Family Medicine; Referring Provider Family Medicine; Visit Provider Surgery
PROC: F00ZJWZ Instrumental Swallowing and Oral Function Assessment using Swallowing Equipment (ICD-10-PCS; CPT 43235; principal; 2023-07-05 09:25)
DX: K21.9 Gastro-esophageal reflux disease without esophagitis (principal)

== ENCOUNTER 2023-08-05 05:57 | Day surgery (SDC) | payer MEDICARE, OTHER, SELFPAY ==
[2023-07-29 09:24] LABS: Hematocrit 39.9 % (37-47); Hemoglobin 12.9 g/dL (12.0-15.0); Mean Corp Hgb Conc 32.3 g/dL (32-36); Mean Corpuscular Hgb 29.1 pg (27.0-32.0); Mean Corpuscular Volume 90.1 fL (81-99); Mean Platelet Vol. 10.6 fl (6.2-12.0); Platelet Count 193 K/mm3 (150-450); RBC Distribution Width CV 12.5 % (11.6-14.6); RBC Distribution Width SD 41.4 fl (35.1-43.9); Red Blood Count 4.43 M/mm3 (4.2-5.4); White Blood Count 4.7 K/mm3 (4.4-11.0)
[2023-07-29 10:19] LABS: Anion Gap 3 (5-15); BUN 16 mg/dL (7-18); BUN/Creat Ratio 15.5 RATIO (10-20); Calcium,Total 9.4 mg/dL (8.5-10.1); Chloride 101 mmol/L (98-107); Creatinine, Serum 1.03 mg/dL (0.55-1.02); EST Glomerular Filtration Rate 57 mL/min (>60); Est Glom Filt Rate - Afr Amer 69 mL/min (>60); Glucose 102 mg/dL (74-106); Potassium 3.6 mmol/L (3.5-5.1); Sodium Level 137 mmol/L (136-145)
[2023-08-05] VITALS (13 sets, daily range): BP systolic 126–167; BP diastolic 67–91; PULSE 54–72; RESP 16–18; TEMP 36.1–37.2; O2SAT 97–100; BMI 29.7
--- NOTE | 2023-08-05 06:25 | HP.PCM_ITS ---
History and Physical Date of Admission: 08/05/23 Dictating Machine Typist Required: No Is patient in pain?: No Allergies latex Allergy (Unknown, Verified 07/16/23 09:10) Rashmeperidine [From Demerol] Allergy (Unknown, Verified 07/16/23 09:10) Nausea/Vom/Diarrheaterbinafine [From Lamisil] Allergy (Unknown, Verified 07/16/23 09:10) Rashlosartan Adverse Reaction (Intermediate, Verified 07/16/23 09:10) Chest tightness, urinary frequency/incontinence Medications calcium citrate 1,000 mg tablet 250 mg PO 4X/DAY 08/05/18 [History Confirmed 07/16/23] erythromycin 5 mg/gram (0.5 %) eye ointment 1 applic ophthalmic (eye) DAILY PRN roseca 08/05/18 [History Confirmed 07/16/23] multivitamin 1 tab PO DAILY 08/05/18 [History Confirmed 07/16/23] triamterene 37.5 mg-hydrochlorothiazide 25 mg capsule (Dyazide) 1 cap PO DAILY 08/05/18 [History Confirmed 07/16/23] cholecalciferol (vitamin D3) 50 mcg (2,000 unit) capsule 2,000 unit PO DAILY 03/29/20 [History Confirmed 07/16/23] alendronate 70 mg tablet (Fosamax) 70 mg PO QWEEK 05/08/23 [History Confirmed 07/16/23] omeprazole 40 mg capsule,delayed release 20 mg PO DAILY 05/08/23 [History Confirmed 07/16/23] PFSH Medical History Abnormal nuclear stress test (07/26/21) Anemia Dysphagia Essential hypertension GERD (gastroesophageal reflux disease) Hyperlipidemia Meniere syndrome Ocular rosacea Screening for intestinal cancer Skin cancer SOB (shortness of breath) Wears glasses Surgical History History of colonoscopy (2019) History of esophageal dilatation History of esophagogastroduodenoscopy (EGD) History of left heart catheterization (08/03/21) History of Mohs micrographic surgery for skin cancer Hx of eye surgery Hx of hysterectomy Hx of shoulder surgery Family History Mother Heart disease Hypertension Thyroid disorder CVA (cerebral vascular accident) High cholesterolFather COPD (chronic obstructive pulmonary disease)Brother Diabetes Social History Smoking Status: Never smoker second hand exposure: No alcohol intake: current alcohol intake frequency: a few times a month substance use type: does not use caffeine: Yes what type of physical activity do you participate in: walking and running frequency: 5-6 times per week duration: 30-45 minutes/day seatbelt use: always HPI HPI HPI: 68-year-old female. I have most recently seen her on June 25, 2023. She returns today to discuss the results of her esophageal manometry examination. On July 05, 2023 the patient had esophageal manometry performed at the [facility]. Results were normal with total of 10 normal swallows normal swallow function good bolus clearance and good LES relaxation. Today's appointment was with the patient and present. It was a 30- minute [id number] consultative appointment regarding surgical treatment options and attempt to get the patient off of proton pump inhibitors. My previous notes reflect the following Visit Reasons: S/P EGD Chief Complaint: f/u EGD Dictating Machine Typist Required: No Is patient in pain?: No Allergies latex Allergy (Unknown, Verified 06/25/23 15:21) Rashmeperidine [From Demerol] Allergy (Unknown, Verified 06/25/23 15:21) Nausea/Vom/Diarrheaterbinafine [From Lamisil] Allergy (Unknown, Verified 06/25/23 15:21) Rashlosartan Adverse Reaction (Intermediate, Verified 06/25/23 15:21) Chest tightness, urinary frequency/incontinence Medications calcium citrate 1,000 mg tablet 250 mg PO 4X/DAY 08/05/18 [History Confirmed 06/25/23] erythromycin 5 mg/gram (0.5 %) eye ointment 1 applic ophthalmic (eye) DAILY PRN roseca 08/05/18 [History Confirmed 06/25/23] multivitamin 1 tab PO DAILY 08/05/18 [History Confirmed 06/25/23] triamterene 37.5 mg-hydrochlorothiazide 25 mg capsule (Dyazide) 1 cap PO DAILY 08/05/18 [History Confirmed 06/25/23] cholecalciferol (vitamin D3) 50 mcg (2,000 unit) capsule 2,000 unit PO DAILY 03/29/20 [History Confirmed 06/25/23] alendronate 70 mg tablet (Fosamax) 70 mg PO QWEEK 05/08/23 [History Confirmed 06/25/23] omeprazole 40 mg capsule,delayed release 20 mg PO DAILY 05/08/23 [History Confirmed 06/25/23] PFSH Medical History (Updated 06/18/23 @ 09:56 by Igor Briscoe) Abnormal nuclear stress test (07/26/21) Anemia Dysphagia Essential hypertension GERD (gastroesophageal reflux disease) Hyperlipidemia Meniere syndrome Ocular rosacea Screening for intestinal cancer Skin cancer SOB (shortness of breath) Wears glasses Surgical History (Updated 06/18/23 @ 09:56 by Igor Briscoe) History of colonoscopy (2019) History of esophageal dilatation History of esophagogastroduodenoscopy (EGD) History of left heart catheterization (08/03/21) History of Mohs micrographic surgery for skin cancer Hx of eye surgery Hx of hysterectomy Hx of shoulder surgery Family History (Updated 05/08/23 @ 08:15 by Lois Ferrell) Mother Heart disease Hypertension Thyroid disorder CVA (cerebral vascular accident) High cholesterolFather COPD (chronic obstructive pulmonary disease)Brother Diabetes Social History Smoking Status: Never smoker second hand exposure: No alcohol intake: current alcohol intake frequency: a few times a month substance use type: does not use caffeine: Yes what type of physical activity do you participate in: walking and running frequency: 5-6 times per week duration: 30-45 minutes/day seatbelt use: always HPI HPI HPI: 67-year-old female returns to discuss evaluation of gastroesophageal reflux disease. On May 20, 2023 the patient had a modified barium swallow i.e. chester cabrera low test. The patient is oropharyngeal swallow is grossly normal. The esophageal phase was marked by retrograde flow of thin barium through the lower esophageal sphincter with retention in the mid and lower esophagus. There was a small cricopharyngeal bar present at C5 which did not impact bolus clearance. Diet recommendations were regular textures and thin liquids. Subsequently on June 20, 2023 I performed a esophagogastroduodenoscopy with biopsies for the patient. A 1 cm hiatal hernia was noted. The Z-line was found at 37 cm. Gastric polyps were identified. Pathology identified mild Oswaldo's gland hyperplasia of the duodenum. Mild antral gastritis. Benign fundic gland polyp. Focal congestion of the distal esophageal biopsy. Midesophagus simply had a fragment of benign squamous epithelium. H. pylori was negative. Although the patient has a small hiatal hernia and has demonstrated reflux disease particularly on the modified barium swallow the current findings did not seem to correlate with the patient's concerns that with swallowing food was getting stuck. My previous notes reflect the following HPI HPI: 67-year-old female is being referred by Dr Francisco J Lozano for surgical consultation regarding gastroesophageal reflux disease and a written copy my surgical consult recommendations will return to him. It is of note that I assisted the patient most recently April 08, 2020 with a colonoscopy demonstrating mild hemorrhoids but otherwise a normal colon. Patient states that she has perhaps had 3 or even 4 upper endoscopies in the past. Remotely she was seen by director of safety Carlo Pruitt but then has had other gastroenterology care more recently. She states and she describes eosinophils and multiple rings. Does not appear however that she was treated with Flonase or referred to an construction equipment operator to identify the potential food group. She has been on a PPI omeprazole for 15 years at least. She tried cutting back from 40 mg to 20 mg successfully and then she tried in February to going every other day and then March she tried to stop and immediately had recurrence of symptoms with food getting caught. She states that she has previously had to have balloon dilatation as well. No bright red blood per rectum or melena. No unexpected weight loss. She states if anything she is slowly gained 6 or 7 pounds. She states she had a heart catheterization last year not demonstrating any critical disease but diffusely small vessels. She states she otherwise enjoys good health. Denies DVT. ROS General General: No weight change, appetite, fatigue, colon cancer, breast cancer or weakness HEENT HEENT: Yes difficulty swallowing; No eye injury, eye surgery, swollen glands or hoarseness Endo Endocrine: No thyroid disease, diabetes mellitus, thyroid cancer, Hair loss, heat intolerance or cold intolerance Skin Skin: Yes changing moles; No rash Musc Musculoskeletal: Yes arthritis; No back problems, rheumatoid arthritis, gout or joint pain Cardio Cardiovascular: No murmur, pacemaker, heart disease, atrial fibrillation, high blood pressure, heart attack, heart stent, palpitations, shortness of breat with exertion or chest pain Psych Psychiatric: No depression, anxiety or hearing voices Resp Respiratory: Yes shortness of breath, No sleep apnea, No cough, No COPD, No asthma, No emphysema and No wheezing Gastro Gastrointestinal: No abdominal pain, No nausea or vomiting, No diarrhea, Yes constipation, No blood in stool, Yes acid reflux, No hemorrhoids, No ulcers, No gallbladder problem and No black,tarry stools Gino Hematologic: No blood thinners, No blood disorders, No bleeding, No anemia and No blood clots Neuro Neurologic: No system reviewed and no additional complaints, except as documented, No as per HPI, No abnormal gait, No abnormal hearing, No abnormal movements, No abnormal speech, No behavioral changes, No burning sensations, No confusion, No convulsions, No disequilibrium, No dizziness, No localized weakness, No frequent falls, No headache(s), No lack of coordination, No loss of vision, No memory loss, No numbness, No other visual disturbances, No radicular pain, No restless legs, No sensory deficit, No syncope, No tingling, No tremor(s), No weakness and No other Exam Const General: cooperative, healthy appearing, comfortable and no acute distress HENMT Head: normal to inspection Eyes General: appearance normal, both eyes and all related structures Neck Neck: normal visual inspection Resp Effort & Inspection: normal respiratory effort Auscultation: clear to auscultation bilaterally Cardio Rate: regular rate Rhythm: regular rhythm GI Inspection: normal to inspection Palpation: soft and no hepatosplenomegaly Musc Cervical Spine: normal cervical lordosis Skin General: no rashes or lesions noted Neuro General: patient alert, patient awake and patient oriented x3 Extrem General: no calf tenderness Psych Appearance: grossly normal Assessment and Plan Assessment and Plan (1) GERD (gastroesophageal reflux disease): Status: Acute Qualifiers: Esophagitis presence: esophagitis presence not specified Qualified Code(s): K21.9 - Gastro-esophageal reflux disease without esophagitis Plan: The patient's discussion sounds like she has eosinophilic esophagitis. I am recommending to that we obtain a barium swallow for definition of this area. I then do propose for her a esophagogastroduodenoscopy with possible biopsy. In great detail however I did discuss with her the potential risk of dilatation in the presence of eosinophilic esophagitis. We would want to approach that with caution. I do not want her to have excess inflammation occurring and so she has been instructed to return to her normal omeprazole dosing in the short period. It may well be that she needs to remain on PPIs and potentially be treated with medication like Flonase and a swallow oral technique. Likely also recommend construction equipment operator referral if eosinophilic esophagitis is identified. 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 She has had an opportunity to ask and have questions answered. I appreciate the opportunity of assisting with her surgical care and we will schedule and proceed as noted. Copy: Dr Francisco J Artis M.D., F.A.C.S Assessment and Plan Assessment and Plan (1) GERD (gastroesophageal reflux disease): Status: Acute Qualifiers: Esophagitis presence: esophagitis presence not specified Qualified Code(s): K21.9 - Gastro-esophageal reflux disease without esophagitis Plan: 68-year-old female who has had medication dependent gastroesophageal reflux disease for 15 years treated with proton pump inhibitor therapy. She has concerns about potential for PPI induced dementia and osteoporosis and renal disease and lymphoma. She has had an opportunity with her to ask and have questions answered. We extensively compared and contrasted surgical treatment options including laparoscopic toupet procedure and laparoscopic Jose J fundoplication. She is aware of the technique and benefit and risks and alternatives. She has been provided postoperative dietary and activity instruction sheets. She is aware from the benefit risk ratio it would seem favorable but especially with her concerns about dementia to pursue an attempted surgical repair of her hiatal hernia with reflux procedure. She otherwise is in good health. She has normal esophageal manometry. I believe she would be a good candidate for a laparoscopic repair with a laparoscopic Jose J fundoplication. She agrees. She would like to schedule and proceed at her discretion. She would like to get it done this winter so that she is recovered for outside summer activities. We will schedule and proceed at her discretion. Copy: Dr Francisco J Artis M.D., F.A.C.S She has had a recent mild viral sore throat. It lasted approximately 8 to 10 days. It is now completely resolved. She was previously seen by her primary care as well. She did not require medical therapy. We will proceed as noted. History and physical is otherwise unchanged. Donald Artis M.D., F.A.C.S.
--- NOTE | 2023-08-05 06:30 | DCINST_ITS ---
Discharge Instructions Procedure General Surgery Diet Discharge Diet: - (Diet as per provided written instruction sheets. Activity limitation instruction sheets also have been provided.) Activity Discharge Activity: May Not Drive (for 3-5 days or while taking narcotic pain medicine.) May shower in (days): 1 Lifting Restrictions: 10 pounds Dressing / Incision Call your doctor if your incision/area has: Continuous Slow Oozing, Sudden Increased Bleeding, Increased Pain/ Swelling, Increased Redness and Foul Smelling Discharge Call your doctor if you observe: Fever of 101 or Higher Suture Line Care: Avoid Pulling/Pushing and Avoid Pinching/Bending Additional Dressing/Incision Instructions:: Change or remove dressing in 4 days. Leave steri-strips in place for 1 week. Follow Up Care Please Follow Up With: Donald Artis MD When: Call [phone] to make an appointment to be seen in about 10 days. Test Results: Test results from this visit will be discussed in further detail at your follow- up appointment, if applicable. Discharge Plan Admission Attending Provider: Donald Artis Primary Care Provider: Francisco J Lozano Discharge Orders/Prescriptions Prescriptions: No Action calcium citrate 1,000 mg tablet 1,000 mg tablet 250 mg PO 4X/DAY multivitamin tablet 1 tab PO DAILY triamterene-hydrochlorothiazid [Dyazide] 37.5-25 mg capsule 1 cap PO DAILY erythromycin 5 mg/gram (0.5 %) ointment 1 applic OPHTHALMIC DAILY PRN (Reason: roseca) omeprazole 40 mg capsule,delayed release(DR/EC) 20 mg PO DAILY alendronate [Fosamax] 70 mg tablet 70 mg PO QWEEK cholecalciferol (vitamin D3) 2,000 UNIT capsule 2,000 unit PO DAILY Referrals / Follow Up: Francisco J Lozano MD [Primary Care Provider] - Disposition Disposition (needs filled in before D/C Order can be placed): Home, Self Care
[2023-08-05] MEDS: Lactated Ringers 1,000 ML 15 ML IV (06:45)
[2023-08-05] MEDS: Cefazolin 2 GM in 0.9% Normal Saline (100mL Bag) 100 ML IV (07:29)
[2023-08-05] MEDS: Bupivacaine Mpf 0.5% 30 ML VIAL (10:17)
--- NOTE | 2023-08-05 10:21 | OP.PCM_ITS ---
Report of Operation Date of Procedure: 08/05/23 Pre-Operative Diagnosis: Intractable medication dependent gastroesophageal refl ux disease with esophagitis and hiatal hernia Post-Operative Diagnosis: Same Surgery/Procedure Performed:: Laparoscopic repair of hiatal hernia with lap aroscopic Jose J fundoplication. Description of Surgical Findings:: Timeout informed consent was obtained. 68-year-old female was taken to the operating placed on the table underwent general endotracheal ovation esthesia. She was placed in a low lithotomy position. Beanbag was used. Gel pads to cushion her arms. Buttock roll was placed. A supporting pad was placed. Patient received 2 g of Ancef intravenously. 0.5% Marcaine was used as a local anesthetic. Superior and in the right perigastric area 5 mm trocar was inserted under Visipaque technology dams insufflated with CO2 to a pressure of 10 mmHg pressure and a 10 mm trocars placed in the left. Epigastric area and 2 more 5 ports in the left subcostal area. A additional 5 Shelton incision was made in the epigastrium and a Sae retractor was placed to help hold the left lobe of the liver. The pars flaccida was incised the right glenny of the diaphragm readily identified tissue was actually more adherent than anticipated I used harmonic scalpel to carefully and tediously dissected the tissue identifying the right portion of the esophagogastric junction was able to free somewhat of the distal esophagus then looked back to the left side now I transected some short gastrics with the harmonic scalpel. Fortunately no large vessels were encountered. [facility] the left glenny which was then freed and tediously with some blunt dissection was able to get retroesophageal access. The vagus nerve was cleanly identified and carefully protected 1/2 inch [place] drain was placed to help elevate the esophagus and vagus nerve roots With the esophagus was able to free circumferentially around the distal esophagus within the mediastinum and to assure good mobility. Having performed that I then used 0 Ethibond sutures but no added pledgets. 2 such sutures were needed to approximate the soft roll crura. A 46 Kiswahili bougie was placed approximation at the EG junction but not too snug. I then was able to remove the bougie part way wrap the fundus of the stomach I secured the fundus posteriorly to the repaired diaphragmatic hiatus with a 0 Ethibond. Then my apical suture placed to the left part of the fundus to the epigastric limiting the anterior wall of the esophagus and then the wrap portion of the stomach and secured that. I placed a second simple suture of stomach to stomach. A short 2 cm floppy wrap. I then placed another 0 Ethibond to secure the left portion of the wrap to the diaphragm. Having achieved felt that I had a very nice wrap it was inspected hemostasis was intact. I then performed an upper endoscopy. It is separately dictated in probation. Demonstrated that the EG junction appeared to be patent there was no drag on the scope at that point retroflex and saw that the wrap was intact. It water was placed within the abdomen during that upper endoscopy and there was no air leak. Excess air was aspirated free. The 10 mm port site was closed with a 0 Vicryl using a grainy needle under direct visualization. The left subcostal area was treated with a transabdominal plane block using the 0.5% Marcaine. Throughout the operation total of 30 cc were used. The Sae retractor was carefully removed the liver was viable at this point now fluid and air was aspirated free trocars were removed. Skin edges were approximated opted for Monocryl subdermal stitches. Steri-Strips Telfa OpSite dressings applied. Sponge and instrument and needle counts were reported to the surgeon to be correct Specimen none. Drains none. Blood loss minimal. The patient was taken to the recovery room in satisfied condition without apparent complication Donald Artis M.D., F.A.C.S. Surgeon: Donald Artis Type of Anesthesia: General and Local Anesthesiologist: Sharonda Anna
[2023-08-05] MEDS: Acetaminophen 325 MG Tablet 650 MG PO (13:52)
== END 2023-08-06 06:43 | disposition home or self-care (01) ==
LOC: SDC 05:57 → AC 05:57
PROVIDERS: PCP Family Medicine; Referring Provider Surgery; Visit Provider Surgery
PROC: (CPT 43325; principal; 2023-08-05 07:10)
DX: K44.9 Diaphragmatic hernia without obstruction or gangrene (principal); I10 Essential (primary) hypertension; E78.5 Hyperlipidemia, unspecified; K21.9 Gastro-esophageal reflux disease without esophagitis; H81.09 Meniere's disease, unspecified ear
CPT/HCPCS: 43281; 00790; 36415; 80048; 85027; 93005; J7120; J2405

== ENCOUNTER → 2023-10-17 | Outpatient (CLI) | payer MEDICARE, OTHER, SELFPAY ==
--- NOTE | 2023-10-17 09:00 | RAD_ITS ---
STUDY: X-RAY - ESOPHAGUS (BARIUM SWALLOW) WITH FLUOROSCOPY REASON FOR EXAM: Female, 68 years old. R13.10 - Dysphagia, unspecified. History of prior Jose J fundoplication surgery. TECHNIQUE: 24 view(s) of the esophagus were obtained following swallowing of barium. FLUOROSCOPY TIME (if supplied): (51 seconds) minutes/seconds. 12.03 mGy. COMPARISON: None. FINDINGS: There is no demonstrated esophageal foreign body. There is no demonstrated stricture or mucosal abnormality. Normal gastroesophageal junction, without a demonstrated hiatal hernia. Status post Jose J fundoplication. No evidence of gastroesophageal reflux. Normal visualized aortic arch and descending thoracic aorta. Normal visualized pulmonary parenchyma. Normal visualized osseous structures of the thorax. RAD/Upper GI w/BA Swallow IMPRESSION: Normal plain film x-ray examination (barium swallow) of the esophagus. Electronically Signed: Shan Campbell MD at 15:10 EDT ,
== END | disposition home or self-care (01) ==
LOC: RAD 08:54
PROVIDERS: PCP Family Medicine; Referring Provider Physician Assistant; Visit Provider Physician Assistant
DX: R13.10 Dysphagia, unspecified (principal); Z98.890 Other specified postprocedural states
CPT/HCPCS: 74246

== ENCOUNTER → 2023-12-31 | Outpatient (CLI) | payer MEDICARE, OTHER, SELFPAY ==
--- NOTE | 2023-12-31 13:10 | RAD_ITS ---
STUDY: X-RAY - RIGHT FOOT CLINICAL: Female, 68 years old. pain, eval heel spur TECHNIQUE: 3 view(s) of the foot. COMPARISON: None. FINDINGS: Normal talus, calcaneus, and tarsal bones. Normal visualized subtalar, talonavicular, calcaneocuboid, tarsal and tarsometatarsal articulations. Normal metatarsi. Normal metatarsophalangeal joint of the great toe. Normal tibial and fibular sesamoid bones. Normal interphalangeal joint of the great toe. Normal phalanges of the great toe. Normal second through fifth metatarsophalangeal joints. Normal interphalangeal joints and phalanges of the lesser toes. The soft tissue structures are unremarkable. RAD/Foot min 3 Views IMPRESSION: Normal x-ray examination of the foot. Electronically Signed: Dakotah Negro MD at 9:46 EDT ,
== END | disposition home or self-care (01) ==
LOC: MTRAD 13:07
PROVIDERS: PCP Family Medicine; Referring Provider Family Medicine; Visit Provider Family Medicine
DX: M79.671 Pain in right foot (principal)
CPT/HCPCS: 73630

== ENCOUNTER → 2024-03-17 | Outpatient (CLI) | payer MEDICARE, OTHER, SELFPAY ==
--- NOTE | 2024-03-17 09:10 | BI_ITS ---
MAMMOGRAPHY - BILATERAL SCREENING REASON FOR EXAM: Female, 68 years old. Routine annual screening examination. PERTINENT HISTORY: Non-contributory. History of prior left ultrasound-guided breast biopsy. TECHNIQUE: Digital bilateral breast is[place] (3D mammographic acquisition) in the CC and MLO projections. 2-D mediolateral oblique (MLO) and craniocaudad (CC) views of both breasts were obtained. CAD: Full Field Digital Mammography with Computer Added Detection was performed. COMPARISON: Comparison is made with prior study dated March 06, 2023 and February 12, 2022. FINDINGS: Breast Composition: The breasts are heterogeneously dense, which may obscure small masses. There are no dominant masses or suspicious calcifications. A tissue clip marker is once again seen within a 7 mm well-defined nodule in the deep inferior medial aspect of the left breast No other significant abnormalities are identified. There has been no significant change since the prior study. BI/SCRN MAMM (CAD)W/ISRAEL BILAT IMPRESSION: Stable bilateral screening mammogram. Yearly follow-up mammogram recommended. (A) ASSESSMENT CATEGORY: BIRADS Category 2: Benign. A letter regarding these results will be sent to the patient by the facility within 30 days. Approximately 10% of breast cancers are not detected by mammography. A normal mammogram should not delay biopsy of a clinically suspicious abnormality. [id number] Electronically Signed: Shan Campbell MD at 10:45 EDT ,
--- NOTE | 2024-03-17 09:14 | BD_ITS ---
STUDY: DUAL ENERGY X-RAY ABSORPTIOMETRY / DXA REASON FOR EXAM: Female, 68 years old. 733.00OsteoporosisBONE DENSITY REASON FOR EXAM TECHNIQUE: Bone Mineral Density (BMD) measurements of lumbar spine and bilateral hips were obtained. COMPARISON: Comparison is made with prior study dated July 20, 2021. FINDINGS: Lumbar Spine (L1-L4): g/cm2 (0.799) / T-score (-2.3) / Z-score (-0.3) Findings are suggestive of osteopenia with a high fracture risk. Left Femur Total: g/cm2 (0.727) / T-score (-1.8) / Z-score (-0.4) Left Femoral Neck: g/cm2 (0.639) / T-score (-1.9) / Z-score (-0.2) Right Femur Total: g/cm2 (0.729) / T-score (-1.7) / Z-score (-0.4) Right Femoral Neck: g/cm2 (0.639) / T-score (-1.9) / Z-score (-0.2) The T-Scores on the most recent prior examination were: Lumbar Spine (L1-L4): There has been improvement of bone density since the previous examination. Left Femur Total: which represents an improvement of 3.3%. Right Femur Total: which represents an improvement of 5.1%. BD/Dexa Bone Density Study IMPRESSION: The patient is considered osteopenic as outlined below according to World [place] Organization (WHO) criteria with a high fracture risk. There has been improvement of bone density since the previous examination. Reference Information: The T-score is the number of standard deviations above or below the standard which is normal for young adults at their peak bone mineral density. The World Health Organization (WHO) interprets the T-scores as follows: Above -1 Normal bone density Between -1 and -2.5 Osteopenia Equal to / or below -2.5 Osteoporosis As a practical clinical guideline, osteopenia may be graded as follows: Mild -1 through -1.5 Moderate -1.6 through -2.0 Severe -2.1 through -2.4 The Z-score is the number of standard deviations above or below age-matched controls. A Z-score of less than -1.5 would be considered abnormal. References: 1. NIH Osteoporosis and Related Bone Diseases www osteo.org 2. International Society for Clinical Densitometry www iscd.org 3. National Osteoporosis Foundation www nof.org Electronically Signed: Shan Campbell MD at 9:06 EDT ,
== END | disposition home or self-care (01) ==
LOC: OPBD 09:10
PROVIDERS: PCP Family Medicine; Referring Provider Family Medicine; Visit Provider Family Medicine
DX: Z12.31 Encounter for screening mammogram for malignant neoplasm of breast (principal); M81.0 Age-related osteoporosis without current pathological fracture
CPT/HCPCS: 77063; 77067; 77080

== ENCOUNTER → 2024-04-13 | Outpatient (CLI) | payer MEDICARE, OTHER, SELFPAY ==
--- NOTE | 2024-04-13 15:30 | MRI_ITS ---
EXAM: MR RIGHT LOWER EXTREMITY WITHOUT INTRAVENOUS CONTRAST, ANKLE CLINICAL INDICATION: TENDOSITIS, SORENESS BEHIND R ANKLE X 1 YEAR TECHNIQUE: Multiplanar and multisequence MR images of the right ankle without intravenous contrast. COMPARISON: December 31, 2023 FINDINGS: LIGAMENTS: ANTERIOR TALOFIBULAR: Attenuated anterior talofibular ligament. POSTERIOR TALOFIBULAR: Unremarkable. Intact. ANTERIOR TIBIOFIBULAR: Unremarkable. Intact. POSTERIOR TIBIOFIBULAR: Unremarkable. Intact. CALCANEOFIBULAR: Unremarkable. Intact. DELTOID: Unremarkable. Intact. SPRING: Unremarkable. Intact. LISFRANC: Unremarkable. Intact. TENDONS: ACHILLES: Unremarkable. Intact. FLEXOR: Unremarkable. Intact. EXTENSOR: Unremarkable. Intact. PERONEAL: Unremarkable. Intact. TIBIALIS ANTERIOR: Unremarkable. Intact. TIBIALIS POSTERIOR: Unremarkable. Intact. MUSCLES: Unremarkable. Normal bulk and signal. FLUID: Small posterior tibiotalar joint effusion. No significant posterior subtalar joint effusion. SINUS TARSI: Sinus Tarsi is normal. TARSAL TUNNEL: Unremarkable. PLANTAR FASCIA: Fluid signal at the plantar fascia calcaneal origin. Mild thickening of the central cord of plantar aponeurosis. Small marrow edema calcaneal marrow edema at the plantar fascial origin, likely reactive. CARTILAGE: Unremarkable. No osteochondral lesion. Articular cartilage intact. BONES/JOINTS: No osteochondral lesions or defects at the tibiotalar dictation. Ankle mortise is intact. No fracture or marrow edema. OTHER SOFT TISSUES: Unremarkable. MRI/Lower Ext Joint Only (Routine) IMPRESSION: 1. Plantar fasciitis and related changes. 2. Attenuated anterior talofibular ligament may represent sequela of prior injury. 3. Small posterior tibiotalar joint effusion. 4. No other significant internal derangement of the ankle. Electronically Signed: Jesus Brown MD at 22:03 EDT ,
== END | disposition home or self-care (01) ==
LOC: MRI 14:48
PROVIDERS: PCP Family Medicine; Referring Provider Podiatrist; Visit Provider Podiatrist
DX: M76.71 Peroneal tendinitis, right leg (principal); M76.61 Achilles tendinitis, right leg; M72.2 Plantar fascial fibromatosis
CPT/HCPCS: 73721

== ENCOUNTER → 2024-04-24 | Outpatient (CLI) | payer MEDICARE, OTHER, SELFPAY ==
[2024-04-24 08:32] LABS: Bacteria 0 SEEN /hpf (None Seen); Mucous, Urine 0 SEEN /hpf (<or=2+); Red Blood Cells-Urine 0 SEEN /hpf (0-5); Squamous Epithelial Cells - UA 0 SEEN /hpf (5-10); White Blood Cells 0 SEEN /hpf (0-5)
[2024-04-24 10:21] LABS: Color, Urine Straw (Yellow); Glucose, Dipstick Normal (Normal); Ketone-Dipstick Negative (Negative); Leukocyte Esterase-Dipstick Negative /ul (Negative); Nitrite-Dipstick Negative (Negative); Occult Blood-Urine Negative /ul (Negative); Protein-Dipstick Negative (Negative); Specific Gravity, Urine 1.015 (1.002-1.030); Urine Bilirubin Dipstick Negative (Negative); Urine Clarity Clear (Clear); Urine Urobilinogen Normal (Normal)
[2024-04-24 10:29] LABS: Absolute Lymphocyte Count 2.18 X10^3/uL (0.83-4.51); Absolute Neutrophil Count 1.8 X10^3/uL (2.0-7.7); Basophil# 0.07 X10^3/uL; Basophil% 1.5 % (0-1); Eosinophils% 4.3 % (0-5); Hematocrit 37.1 % (37-47); Lymphocyte # 2.18 X10^3/ul (0.83-4.51); Lymphocyte % 46.8 % (19-41); Mean Corp Hgb Conc 32.3 g/dL (32-36); Mean Corpuscular Hgb 29.7 pg (27.0-32.0); Mean Corpuscular Volume 91.8 fL (81-99); Mean Platelet Vol. 10.2 fl (6.2-12.0); Monocyte# 0.42 X10^3/uL; NRBC Flagged by Analyzer 0 % (0-5); Neutrophil # 1.78 X10^3/uL (2.7-7.7); Neutrophil % 38.2 % (47-70); Platelet Count 201 K/mm3 (150-450); RBC Distribution Width CV 12.8 % (11.6-14.6); RBC Distribution Width SD 43.1 fl (35.1-43.9); Red Blood Count 4.04 M/mm3 (4.2-5.4); White Blood Count 4.7 K/mm3 (4.4-11.0)
[2024-04-24 11:00] LABS: Vitamin D,25 Hydroxy 36.6 ng/mL
[2024-04-24 11:22] LABS: ALB/GLOB Ratio 1.2 RATIO (0.9-2.4); AST(SGOT) 22 U/L (15-37); Alanine Aminotransfer ALT/SGPT 35 U/L (13-56); Albumin, Serum 3.5 g/dL (3.2-5.0); Alkaline Phosphatase 86 U/L (45-117); Anion Gap 6 (5-15); BUN 17 mg/dL (7-18); BUN/Creat Ratio 16.5 RATIO (10-20); Calcium,Total 9.2 mg/dL (8.5-10.1); Chloride 107 mmol/L (98-107); Cholesterol 214 mg/dL (200); Creatinine, Serum 1.03 mg/dL (0.55-1.02); EST Glomerular Filtration Rate 57 mL/min (>60); Est Glom Filt Rate - Afr Amer 69 mL/min (>60); Glucose 94 mg/dL (74-106); High Density Lipoprotein 67 mg/dL; Magnesium 2.3 mg/dL (1.6-2.6); Potassium 3.7 mmol/L (3.5-5.1); Protein, Total 6.5 g/dL (6.4-8.2); Sodium Level 142 mmol/L (136-145); Triglycerides 101 mg/dL; Very Low Density Lipoprotein 20 mg/dL (5-40)
== END | disposition home or self-care (01) ==
LOC: MTLAB 08:19
PROVIDERS: PCP Family Medicine; Referring Provider Family Medicine; Visit Provider Family Medicine
DX: M81.0 Age-related osteoporosis without current pathological fracture (principal); I10 Essential (primary) hypertension; R73.02 Impaired glucose tolerance (oral)
CPT/HCPCS: 36415; 80053; 80061; 81001; 82306; 83036; 83735; 84443; 85025

== ENCOUNTER → 2024-08-19 | Outpatient (CLI) | payer MEDICARE, OTHER, SELFPAY ==
[2024-08-19 10:27] LABS: Absolute Lymphocyte Count 1.92 X10^3/uL (0.83-4.51); Absolute Neutrophil Count 1.5 X10^3/uL (2.0-7.7); Basophil# 0.06 X10^3/uL; Basophil% 1.5 % (0-1); Eosinophil# 0.18 X10^3/uL; Eosinophils% 4.4 % (0-5); Hematocrit 41.2 % (37-47); Hemoglobin 13.6 g/dL (12.0-15.0); Lymphocyte # 1.92 X10^3/ul (0.83-4.51); Lymphocyte % 46.7 % (19-41); Mean Corpuscular Hgb 29.1 pg (27.0-32.0); Mean Platelet Vol. 10.9 fl (6.2-12.0); Monocyte# 0.43 X10^3/uL; Monocyte% 10.5 % (0-10); NRBC Flagged by Analyzer 0 % (0-5); Neutrophil # 1.52 X10^3/uL (2.7-7.7); Neutrophil % 36.9 % (47-70); Platelet Count 185 K/mm3 (150-450); RBC Distribution Width SD 38.5 fl (35.1-43.9); Red Blood Count 4.68 M/mm3 (4.2-5.4); White Blood Count 4.1 K/mm3 (4.4-11.0)
[2024-08-19 10:30] LABS: Glucose, Dipstick Normal (Normal); Ketone-Dipstick Negative (Negative); Leukocyte Esterase-Dipstick 25 /ul (Negative); Nitrite-Dipstick Negative (Negative); Occult Blood-Urine Negative /ul (Negative); Protein-Dipstick Negative (Negative); Urine Bilirubin Dipstick Negative (Negative); Urine Urobilinogen Normal (Normal)
[2024-08-19 10:33] LABS: Color, Urine Yellow (Yellow); Urine Clarity Clear (Clear)
[2024-08-19 10:50] LABS: ALB/GLOB Ratio 1.8 RATIO (0.9-2.4); AST(SGOT) 26 U/L (<=31); Alanine Aminotransfer ALT/SGPT 13 U/L (<=34); Albumin, Serum 4.3 g/dL (3.4-4.8); Alkaline Phosphatase 60 U/L (35-104); Anion Gap 10 (5-15); BUN 10 mg/dL (4-19); BUN/Creat Ratio 10.2 RATIO (10-20); Calcium 9.7 mg/dL (7.6-11.0); Chloride 99 mmol/L (96-108); Cholesterol 199 mg/dL (<=200); EST Glomerular Filtration Rate 65 (>60); Globulin 2.4 g/dL (2.2-4.2); Glucose 102 mg/dL (70-99); High Density Lipoprotein 75 mg/dL; Low Density Lipoprotein Calc. 109 mg/dL; Phosphorus 3.4 mg/dL (2.7-4.5); Potassium 3.5 mmol/L (3.3-5.1); Protein, Total 6.7 g/dL (5.9-8.4); Sodium Level 138 mmol/L (133-145); Total Bilirubin 0.71 mg/dL (0.00-1.30); Triglycerides 76 mg/dL; Very Low Density Lipoprotein 15 mg/dL (5-40); cholesterol:hdl ratio screen 2.65
[2024-08-19 11:15] LABS: PTHIN 36 pg/mL (11-61)
[2024-08-19 17:18] LABS: Hemoglobin A1c 6.1 % (<=5.6)
[2024-08-21 03:10] LABS: Protein, Urine (Random) < 6.0 mg/dL (0.0-12.0); Protein:Creat Ratio UNABLE TO CALCULATE mg/g CRE (0-200)
== END | disposition home or self-care (01) ==
LOC: MTLAB 07:51
PROVIDERS: PCP Family Medicine; Referring Provider Family Medicine; Visit Provider Family Medicine
DX: I12.9 Hypertensive chronic kidney disease with stage 1 through stage 4 chronic kidney disease, or unspecified chronic kidney disease (principal); N18.30 Chronic kidney disease, stage 3 unspecified; E78.00 Pure hypercholesterolemia, unspecified; R73.02 Impaired glucose tolerance (oral)
CPT/HCPCS: 36415; 80053; 80061; 81002; 82570; 83036; 83970; 84100; 84156; 85025

== ENCOUNTER 2024-10-21 15:52 | Emergency (ER) | payer MEDICARE, OTHER, SELFPAY ==
[2024-10-21 15:54] VITALS: BP 159/89; PULSE 61; RESP 18; TEMP 36.4; O2SAT 100; BMI 28.7
--- NOTE | 2024-10-21 16:07 | EKG12_ITS ---
Test Reason : Blood Pressure : */* mmHG Vent. Rate : 58 BPM Atrial Rate : 58 BPM P-R Int : 138 ms QRS Dur : 84 ms QT Int : 430 ms P-R-T Axes : 36 22 4 degrees QTcB Int : 422 ms Sinus bradycardia Nonspecific ST and T wave abnormality Abnormal ECG Confirmed by BRET OSCAR, ANUSHA ([id number]), website/blog editor HYACINTH BILL ([id number]) on 10/22/2024 1:29:19 PM Referred By: Confirmed By: ANUSHA QUEEN MD
--- NOTE | 2024-10-21 16:08 | EX.ED.DYSGE1 ---
HPI History of Present Illness Chief Complaint: Foreign Body Informant: patient Onset/Context/Timing Onset: Yesterday Context: Gradual Onset Timing: Continuous Quality: Heaviness Location: Substernal Worsened by: Sitting Relieved by: Nothing Narrative Narrative: Patient presents with possible esophageal food impaction. Patient states she was eating dinner last night. Patient states she was eating some pork and felt like it got stuck in her midesophagus. Patient states she has a heavy feeling over her the substernal area. Patient states it is worse when she sits up. Patient states that she has been belching. Patient states she has tried Coke and water with no improvement. Patient states she is able to keep liquids down. Patient states she also ate some cranberry sauce today which she was able to keep down. Patient denies any shortness of breath. Patient denies any cough. Patient denies any nausea or vomiting. [facility] Medical History Wears hearing aid Cancer Post-menopausal Alcohol use Arthritis History of hiatal hernia Gastric reflux Non-smoker Cardiology follow-up encounter History of stress test Wears glasses Dysphagia Essential hypertension Meniere syndrome GERD (gastroesophageal reflux disease) Hyperlipidemia Screening for intestinal cancer Skin cancer SOB (shortness of breath) Anemia Ocular rosacea Home Medications ?Medication ?Instructions ?Recorded ?Last Taken ?Type multivitamin 1 tab PO DAILY 08/05/18 10/20/24 History triamterene 37.5 1 cap PO DAILY 08/05/18 10/21/24 History mg-hydrochlorothiazide 25 mg capsule (Dyazide) cholecalciferol (vitamin D3) 50 2,000 unit PO DAILY 03/29/20 10/21/24 History mcg (2,000 unit) capsule calcium carbonate (Calcium 600) 600 mg PO DAILY 10/21/24 10/20/24 History loratadine 10 mg tablet 10 mg PO DAILY 10/21/24 10/21/24 History (Allerclear) Allergy/AdvReac Type Severity Reaction Status Date / Time latex Allergy Unknown Rash Verified 10/21/24 15:54 meperidine (From Demerol) Allergy Unknown Nausea/Vom/ Verified 10/21/24 15:54 Diarrhea terbinafine (From Lamisil) Allergy Unknown Rash Verified 10/21/24 15:54 losartan AdvReac Intermediate Chest Verified 10/21/24 15:54 tightness, urinary frequency/incontinence Family History Mother Heart disease Hypertension Thyroid disorder CVA (cerebral vascular accident) High cholesterol Father COPD (chronic obstructive pulmonary disease) Brother Diabetes Surgical History History of Jose J fundoplication History of esophagogastroduodenoscopy (EGD) History of left heart catheterization (08/03/21) History of esophagogastroduodenoscopy (EGD) History of colonoscopy (2019) History of esophageal dilatation History of Mohs micrographic surgery for skin cancer Hx of shoulder surgery Hx of hysterectomy Hx of eye surgery Social History Smoking Status: Never smoker second hand exposure: No alcohol intake: current alcohol intake frequency: a few times a month substance use type: does not use caffeine: Yes what type of physical activity do you participate in: walking and running frequency: 5-6 times per week duration: 30-45 minutes/day seatbelt use: always ROS ROS ED Constitutional Constitutional ED: Denies chills or fever(s) Eyes Eyes: Denies blurry vision or change in vision ENT ENT ED: Denies rhinorrhea or sore throat Cardiovascular Cardiovascular: Reports chest pain; Denies palpitations Respiratory/Chest Respiratory/Chest: Denies cough or dyspnea Gastrointestinal Gastrointestinal: Denies nausea or vomiting Genitourinary Genitourinary ED: Denies dysuria or hematuria Musculoskeletal Musculoskeletal: Denies back pain or neck pain Integumentary Denies abscess or rash Neurologic Neurologic: Denies headache(s) or weakness Allergic/Immunologic Allergic/Immunologic ED: Denies mouth swelling or urticaria EXAM Physical Exam Const Vital Signs: 10/21/24 15:54 10/21/24 16:18 10/21/24 17:06 Temperature 97.6 F L Temperature Source Temporal Pulse Rate 61 55 L Respiratory Rate 18 18 Respiratory Effort Normal Respiratory Pattern Normal Blood Pressure 159/89 H 146/76 H Blood Pressure Mean 112 99 Pulse Ox 100 97 Oxygen Delivery Method Room Air Room Air 10/21/24 18:00 10/21/24 19:00 Temperature Temperature Source Pulse Rate 78 59 L Respiratory Rate 16 16 Respiratory Effort Respiratory Pattern Blood Pressure 141/71 H 135/86 H Blood Pressure Mean 94 102 Pulse Ox 99 98 Oxygen Delivery Method Room Air Room Air Positive well nourished and well developed General Appearance ED: well developed and NAD HEENT Reports moist mucous membranes Neck supple and no JVD Resp normal respiratory effort and clear to auscultation bilaterally Cardio regular rate and regular rhythm GI non-tender and non-distended Palpation: soft Neuro oriented x3, CN's II-XII intact bilaterally and no sensory deficits noted Sensorium / Orientation: alert Motor Exam: strength 5/5 throughout MDM MDM MDM Narrative Medical decision making narrative: Differential diagnosis includes esophageal food impaction, cardiac dysrhythmia, cardiac ischemia, and gastroesophageal reflux disease. EKG will be obtained to assess for cardiac dysrhythmia cardiac ischemia. Radiography Diagnostic Testing: Clinical Impression(s) from Imaging Studies Chest/Abdomen CT 10/21/24 17:46 IMPRESSION: Coronary artery calcification (CAC) is was not evaluable Normal CT of the chest and abdomen. Reading Location: [facility] CT scan of the chest abdomen was obtained. There is no acute abnormality noted. There is no evidence of obstruction. This was interpreted by the radiologist and was also independently reviewed by myself. EKG Initial EKG: Attestation: I personally reviewed and interpreted this EKG as follows: Interpretation: Sinus Bradycardia (58) and Non-Specific ST Changes Comments: EKG was obtained. On my independent interpretation, it showed a sinus bradycardia with a rate of 58. DE interval, QRS interval, and QTc intervals were all normal. [place] was normal. There are some nonspecific ST-T wave changes. Prior EKG tracings: available for review Prior: Unchanged (July 29, 2023) Treatment and Re-Evaluation :: Patient was given a dose of IV glucagon. Initially, patient had minimal relief with this. However, later on reevaluation patient was feeling better. Patient was able to eat cookies and yogurt and was able to swallow them without difficulty. Case was discussed with Dr. Medina. He recommended obtaining CT scan. He was advised that the patient was able to eat cookies and yogurt. He will follow-up with the patient as an outpatient in 1 to 2 days. Patient and spouse understand and are agreeable with the plan. All questions were answered. Discharge Plan Triage Chief Complaint: Foreign Body ED Provider: Adrian Tejeda Dx/Rx/DC Orders Clinical Impression: Dysphagia, Status post Jose J fundoplication Instructions: ED Soft Diet, ED Dysphagia (Adult) Prescriptions: No Action multivitamin tablet 1 tab PO DAILY triamterene-hydrochlorothiazid [Dyazide] 37.5-25 mg capsule 1 cap PO DAILY cholecalciferol (vitamin D3) 2,000 UNIT capsule 2,000 unit PO DAILY loratadine [Allerclear] 10 mg tablet 10 mg PO DAILY calcium carbonate [Calcium 600] 600 mg calcium (1,500 mg) tablet 600 mg PO DAILY Primary Care Provider: Francisco J Lozano Referrals: Francisco J Lozano MD [Primary Care Provider] - Nestor Medina DO [Med Staff - Active Staff] - 1 Day Activity Restrictions/Additional Instructions: Call Dr. Medina's office tomorrow morning. He may be able to see you tomorrow in the office. Print Language: French Disposition Disposition: Home, Self Care
[2024-10-21] MEDS: Glucagon 1 MG/ML Syringe IV (16:25)
[2024-10-21 17:06] VITALS: BP 146/76; PULSE 55; RESP 18; O2SAT 97
--- NOTE | 2024-10-21 17:46 | CT_ITS ---
PROCEDURE: CT CHEST AND ABD W/ CONTRAST 10/21/2024 REASON FOR EXAM: DYSPHAGIA TECHNIQUE: Chest and abdomen CT with intravenous contrast. Coronal and Sagittal reconstruction series were provided. One or more dose reduction techniques were used (e.g., Automated exposure control, adjustment of the mA and/or kV according to patient size, use of iterative reconstruction technique. PATIENT PREPARATION: Per protocol ORAL CONTRAST TYPE: None. AMOUNT: mL COMPARISON: None. FINDINGS: CT CHEST: Hardware: None Lymph nodes: No mediastinal, hilar, or axillary lymphadenopathy. Heart and Vasculature: Normal heart size. No pericardial effusion. Thoracic aorta and pulmonary arteries are unremarkable. Lungs and Airways: The lungs are normally expanded and clear. Pleura: No pleural effusion. CT ABDOMEN: Liver: Normal size. No mass. Gallbladder: Unremarkable. Spleen: Normal size. Pancreas: Normal size without evidence of mass surrounding inflammation or ductal dilation. Adrenals: Unremarkable. Kidneys: Normal renal sizes. No hydronephrosis. Bowel: Unremarkable. Lymph nodes: Unremarkable. Vasculature: The abdominal aorta and IVC are normal. Peritoneum / Retroperitoneum: Unremarkable. Bones: Unremarkable. CT/CT Chest AND Abd W/ Contrast IMPRESSION: Coronary artery calcification (CAC) is was not evaluable Normal CT of the chest and abdomen. Reading Location: [id number]
[2024-10-21 18:00] VITALS: BP 141/71; PULSE 78; RESP 16; O2SAT 99
[2024-10-21 19:00] VITALS: BP 135/86; PULSE 59; RESP 16; O2SAT 98
[2024-10-21 19:59] VITALS: BP 131/68; PULSE 56; RESP 18; TEMP 36.7; O2SAT 98
== END 2024-10-21 20:00 | disposition home or self-care (01) ==
PROVIDERS: Emergency Provider Emergency Medicine; PCP Family Medicine; Visit Provider Emergency Medicine
DX: R13.10 Dysphagia, unspecified (principal); I10 Essential (primary) hypertension; E78.5 Hyperlipidemia, unspecified; Z90.710 Acquired absence of both cervix and uterus; Z98.890 Other specified postprocedural states; Z85.828 Personal history of other malignant neoplasm of skin
CPT/HCPCS: 71260; 74160; 93005; 96374; 99283; Q9967; A4216; J1610

== ENCOUNTER 2024-10-27 05:56 | Day surgery (SDC) | payer MEDICARE, OTHER, SELFPAY ==
--- NOTE | 2024-10-22 16:28 | PAT.ANESEVAL ---
Pre-Assessment Diagnosis/Proposed Procedure Planned Operative Procedure(s): egd Anesthesia History Anesthesia History - fashion adviser: Anesthesia History - fashion adviser Hx Hospitalization No 10/22/24 15:38 Any Problems With Anesthesia No 10/22/24 15:38 Cholinesterase deficiency No 10/22/24 15:38 You/Your Family Experience No 10/22/24 15:38 fever (hyperthermia) with Relationship Recent Exposure to Contagious No 09/13/23 15:13 Disease Does patient have nerve No 10/22/24 15:38 stimulator Patient instructed to have device shut off --Does patient have Pacemaker or ICD? When Was Last Pacemaker Check QUESTION #4 FULL TEXT: You/Your Family Experience fever (hyperthermia) with Anesthesia Last Oral Intake Last Oral intake: Last Oral Intake NPO since Meds taken in AM with sips of water? Meds patient instructed to take am of surgery PONV PONV - fashion adviser: PONV - fashion adviser Female Yes 10/22/24 15:38 HX of Motion Sickness No 10/22/24 15:38 HX of N/V After Surgery No 10/22/24 15:38 Non-Smoker Yes 10/22/24 15:38 Duration of Surgery greater No 10/22/24 15:38 than 60 minutes Number of Risk Factors 2 10/22/24 15:38 PONV Score Moderate Risk 10/22/24 15:38 Height & Weight Height & Weight: Anesthesia: Height & Weight Height 5 ft 3 in 10/21/24 15:54 Respiratory Assessment Respiratory Assessment - fashion adviser: Respiratory Tract Infection Hx - fashion adviser Hx Respiratory Tract Infection No 10/22/24 15:38 STOP Sleep Apnea STOP Sleep Apnea - fashion adviser: STOP Sleep Apnea - fashion adviser Hx Hypertension No 10/22/24 15:38 Hx Sleep Apnea No 10/22/24 15:38 CPAP BIPAP Do you snore loudly (louder No 10/22/24 15:38 than talking or can be heard Do you often feel tired/ No 10/22/24 15:38 fatigued/ sleepy during daytime? Has anyone observed you stop No 10/22/24 15:38 breathing during sleep? STOP Results Negative 10/22/24 15:38 QUESTION #5 FULL TEXT : Do you snore loudly (louder than talking or can be heard through closed doors)? Tobacco Use History Tobacco Use History - fashion adviser: Tobacco Use History - fashion adviser Tobacco Use Smoking Status Never smoker 10/22/24 15:38 Hx Tobacco Use No 10/22/24 15:38 Years Smoking Packs Smoked per Day Smoking Cessation Date was within the last 15 years Hx Smoking Cessation Date Hx Smoking Cessation Counseling Hematologic Medial History Hematologic Hx - fashion adviser: Hematologic Medical Hx - college intern Hx of Blood Transfusion No 10/22/24 15:38 Hx of Transfusion in last 3 No 10/22/24 15:38 Months Date of Last Transfusion (if within last 3 months) Ever experience any problems No 10/22/24 15:38 with transfusion(s)? Specify any problems Hx of Preganancy in last 3 No 10/22/24 15:38 Months Nurse Filling Out Transfusion JZOLLINGE 10/22/24 15:38 & Questions: Date: 10/22/24 10/22/24 15:38 Time: 15:40 10/22/24 15:38 Patient unable to answer at this time (ie. confused, unrespo /Reproduction History /Reproductive History - fashion adviser: /Reproductive Hx- fashion adviser Hx Now No 10/22/24 15:38 Gestational Age (in weeks): EDC: Hx Hx Para Hx Section SAB No 10/22/24 15:38 [facility] Medical History (Updated 10/22/24 @ 15:38 by Lily Russell) Dietary restriction Pneumonia Osteoporosis Osteopenia Hormone deficiency Hives Hearing problem UTI (urinary tract infection) Seasonal allergies Wears hearing aid Cancer Post-menopausal Alcohol use Arthritis History of hiatal hernia Gastric reflux Non-smoker Cardiology follow-up encounter History of stress test Wears glasses Dysphagia Essential hypertension Meniere syndrome GERD (gastroesophageal reflux disease) Hyperlipidemia Screening for intestinal cancer Skin cancer SOB (shortness of breath) Anemia Ocular rosacea Home Medications ?Medication ?Instructions ?Recorded ?Last Taken ?Type multivitamin 1 tab PO DAILY 08/05/18 10/20/24 History triamterene 37.5 1 cap PO DAILY 08/05/18 10/21/24 History mg-hydrochlorothiazide 25 mg capsule (Dyazide) cholecalciferol (vitamin D3) 50 2,000 unit PO DAILY 03/29/20 10/21/24 History mcg (2,000 unit) capsule calcium carbonate (Calcium 600) 600 mg PO DAILY 10/21/24 10/20/24 History loratadine 10 mg tablet 10 mg PO DAILY 10/21/24 10/21/24 History (Allerclear) Allergy/AdvReac Type Severity Reaction Status Date / Time latex Allergy Unknown Rash Verified 10/22/24 15:31 meperidine (From Demerol) Allergy Unknown Nausea/Vom/ Verified 10/22/24 15:31 Diarrhea terbinafine (From Lamisil) Allergy Unknown Rash Verified 10/22/24 15:31 Family History Mother Heart disease Hypertension Thyroid disorder CVA (cerebral vascular accident) High cholesterol Father COPD (chronic obstructive pulmonary disease) Brother Diabetes Surgical History History of Jose J fundoplication History of esophagogastroduodenoscopy (EGD) History of left heart catheterization (08/03/21) History of esophagogastroduodenoscopy (EGD) History of colonoscopy (2019) History of esophageal dilatation History of Mohs micrographic surgery for skin cancer Hx of shoulder surgery Hx of hysterectomy Hx of eye surgery Social History Smoking Status: Never smoker second hand exposure: No alcohol intake: current alcohol intake frequency: a few times a month substance use type: does not use caffeine: Yes what type of physical activity do you participate in: walking and running frequency: 5-6 times per week duration: 30-45 minutes/day seatbelt use: always Audit: Pertinent Findings Pertinent Findings EKG Perinent findings: 10/21/2024. Sinus bradycardia at [address] and T wave abnormality. Stress test pertinent findings: July 26, 2021 ejection fraction 69%. No obvious ischemia on SPECT. No previous infarct. There are EKG changes suggestive of ischemia. Heart catheterization pertinent findings: 08/03/2021. Normal coronary arteries. Ejection fraction 60%. Consult pertinent findings: 07/28/2021. Dr. Castro. 1. Abnormal nuclear stress test?acute-there was abnormal stress EKG at a moderate workload. And the SPECT could not completely rule out a small portion of apex with ischemia. Plan for angiogram. (See above). 2. Dyspnea on exertion?acute-anginal equivalent. Check cardiac cath. (See above). Recommendation Anesthesia Recommendation Anesthesia recommendation: OPTIMIZED for anesthesia
[2024-10-27] VITALS (8 sets, daily range): BP systolic 99–132; BP diastolic 62–77; PULSE 48–59; RESP 14–18; TEMP 36.2–36.9; O2SAT 98–100; BMI 28.0
[2024-10-27] MEDS: Lactated Ringers 1,000 ML 15 ML IV (06:31)
--- NOTE | 2024-10-27 06:50 | PCM.PRE.AN2 ---
ASA Classification* ASA Classification ASA Classification: 2 Assessment & Plan Anesthesia* Anesthesia Assessment Anesthesia Assessment: Discussed sedation and/or anesthesia options, risks, benefits, and alternatives with patient/parents/legal guardian/POA. Questions invited. The patient/parents/legal guardian/POA seems to understand and agrees to proceed with anesthesia plan. Reviewed the physical assessment, medical history, allergy history and patient home medications list prior to surgery/procedure/anesthetic and documented any changes. Performed airway and anesthesia risk assessments. Anesthesia Type Anesthesia Type: MAC History Source History Obtained from:: Patient and Chart Anesthesia Focused Assessment* Temperature: 97.3 F Pulse Rate: 51 Blood Pressure: 132/77 Respiratory Rate: 18 Pulse Ox: 100 Oxygen Delivery Method: Room Air Airway Assessment Mouth opens: >3 cm Mallampati Score: I Teeth Condition: Caps/Crowns (Patient has several crowns. They are all tight.) Neck Range of motion (ROM): Full ROM Focused Labs Anesthesia Preop lab: CBC WBC 4.1 K/mm3 (4.4-11.0) L 08/19/24 07:56 08/19/24 RBC 4.68 M/mm3 (4.2-5.4) 08/19/24 07:56 08/19/24 Hgb 13.6 g/dL (12.0-15.0) 08/19/24 07:56 08/19/24 Hct 41.2 % (37-47) 08/19/24 07:56 08/19/24 Plt Count 185 K/mm3 (150-450) 08/19/24 07:56 08/19/24 CHEMISTRY Potassium 3.5 mmol/L (3.3-5.1) 08/19/24 07:56 08/19/24 Sodium 138 mmol/L (133-145) 08/19/24 07:56 08/19/24 Magnesium 2.3 mg/dL (1.6-2.6) 04/24/24 08:20 04/24/24 Phosphorus 3.4 mg/dL (2.7-4.5) 08/19/24 07:56 08/19/24 BUN 10 mg/dL (4-19) 08/19/24 07:56 08/19/24 Creatinine 1.0 mg/dL (0.6-1.0) 08/19/24 07:56 08/19/24 Glucose 102 mg/dL (70-99) H 08/19/24 07:56 08/19/24 TSH 2.400 uIU/mL (0.358-3.740) 04/24/24 08:20 04/24/24 COAG Pre-Assessment Diagnosis/Proposed Procedure Planned Operative Procedure(s): egd Anesthesia History Anesthesia History - ophthalmic pathologist: Anesthesia History - ophthalmic pathologist Hx Hospitalization No 10/22/24 15:38 Any Problems With Anesthesia No 10/22/24 15:38 Cholinesterase deficiency No 10/22/24 15:38 You/Your Family Experience No 10/22/24 15:38 fever (hyperthermia) with Relationship Recent Exposure to Contagious No 10/27/24 06:24 Disease Does patient have nerve No 10/22/24 15:38 stimulator Patient instructed to have device shut off --Does patient have Pacemaker No 10/27/24 06:25 or ICD? When Was Last Pacemaker Check QUESTION #4 FULL TEXT: You/Your Family Experience fever (hyperthermia) with Anesthesia Last Oral Intake Last Oral intake: Last Oral Intake NPO since 20:00 10/27/24 06:25 Meds taken in AM with sips of No 10/27/24 06:25 water? Meds patient instructed to take am of surgery PONV PONV - ophthalmic pathologist: PONV - ophthalmic pathologist Female Yes 10/22/24 15:38 HX of Motion Sickness No 10/22/24 15:38 HX of N/V After Surgery No 10/22/24 15:38 Non-Smoker Yes 10/22/24 15:38 Duration of Surgery greater No 10/22/24 15:38 than 60 minutes Number of Risk Factors 2 10/22/24 15:38 PONV Score Moderate Risk 10/22/24 15:38 Height & Weight Height & Weight: Anesthesia: Height & Weight Height 5 ft 3 in 10/27/24 06:25 Weight: 71.668 kg 10/27/24 06:25 Body Mass Index (BMI) 28.0 10/27/24 06:25 Respiratory Assessment Respiratory Assessment - ophthalmic pathologist: Respiratory Tract Infection Hx - ophthalmic pathologist Hx Respiratory Tract Infection No 10/22/24 15:38 STOP Sleep Apnea STOP Sleep Apnea - ophthalmic pathologist: STOP Sleep Apnea - ophthalmic pathologist Hx Hypertension No 10/22/24 15:38 Hx Sleep Apnea No 10/22/24 15:38 CPAP BIPAP Do you snore loudly (louder No 10/22/24 15:38 than talking or can be heard Do you often feel tired/ No 10/22/24 15:38 fatigued/ sleepy during daytime? Has anyone observed you stop No 10/22/24 15:38 breathing during sleep? STOP Results Negative 10/22/24 15:38 QUESTION #5 FULL TEXT : Do you snore loudly (louder than talking or can be heard through closed doors)? Tobacco Use History Tobacco Use History - ophthalmic pathologist: Tobacco Use History - ophthalmic pathologist Tobacco Use Smoking Status Never smoker 10/22/24 15:38 Hx Tobacco Use No 10/22/24 15:38 Years Smoking Packs Smoked per Day Smoking Cessation Date was within the last 15 years Hx Smoking Cessation Date Hx Smoking Cessation Counseling Hematologic Medial History Hematologic Hx - ophthalmic pathologist: Hematologic Medical Hx - hiv cts specialist Hx of Blood Transfusion No 10/22/24 15:38 Hx of Transfusion in last 3 No 10/22/24 15:38 Months Date of Last Transfusion (if within last 3 months) Ever experience any problems No 10/22/24 15:38 with transfusion(s)? Specify any problems Hx of Preganancy in last 3 No 10/22/24 15:38 Months Nurse Filling Out Transfusion [id number] 10/22/24 15:38 & Questions: Date: 10/22/24 10/22/24 15:38 Time: 15:40 10/22/24 15:38 Patient unable to answer at this time (ie. confused, unrespo /Reproduction History /Reproductive History - ophthalmic pathologist: /Reproductive Hx- ophthalmic pathologist Hx Now No 10/22/24 15:38 Gestational Age (in weeks): EDC: Hx Hx Para Hx Section SAB No 10/22/24 15:38 Active Medications Active Medications: Current Medications Generic Name Dose Route Start Last Admin Trade Name Freq PRN Reason Stop Dose Admin Lactated Ringer's 1,000 mls @ 15 mls/hr 10/27/24 06:15 10/27/24 06:31 IV 15 mls/hr .Q48H LUCY Administration PFSH Medical History Dietary restriction Pneumonia Osteoporosis Osteopenia Hormone deficiency Hives Hearing problem UTI (urinary tract infection) Seasonal allergies Wears hearing aid Cancer Post-menopausal Alcohol use Arthritis History of hiatal hernia Gastric reflux Non-smoker Cardiology follow-up encounter History of stress test Wears glasses Dysphagia Essential hypertension Meniere syndrome GERD (gastroesophageal reflux disease) Hyperlipidemia Screening for intestinal cancer Skin cancer SOB (shortness of breath) Anemia Ocular rosacea Home Medications ?Medication ?Instructions ?Recorded ?Last Taken ?Type multivitamin 1 tab PO DAILY 08/05/18 10/22/24 History triamterene 37.5 1 cap PO DAILY 08/05/18 10/26/24 History mg-hydrochlorothiazide 25 mg capsule (Dyazide) cholecalciferol (vitamin D3) 50 2,000 unit PO DAILY 03/29/20 10/22/24 History mcg (2,000 unit) capsule calcium carbonate (Calcium 600) 600 mg PO DAILY 10/21/24 10/22/24 History loratadine 10 mg tablet 10 mg PO DAILY 10/21/24 10/26/24 History (Allerclear) Allergy/AdvReac Type Severity Reaction Status Date / Time latex Allergy Unknown Rash Verified 10/27/24 06:22 meperidine (From Demerol) Allergy Unknown Nausea/Vom/ Verified 10/27/24 06:22 Diarrhea terbinafine (From Lamisil) Allergy Unknown Rash Verified 10/27/24 06:22 Family History Mother Heart disease Hypertension Thyroid disorder CVA (cerebral vascular accident) High cholesterol Father COPD (chronic obstructive pulmonary disease) Brother Diabetes Surgical History History of Jose J fundoplication History of esophagogastroduodenoscopy (EGD) History of left heart catheterization (08/03/21) History of esophagogastroduodenoscopy (EGD) History of colonoscopy (2019) History of esophageal dilatation History of Mohs micrographic surgery for skin cancer Hx of shoulder surgery Hx of hysterectomy Hx of eye surgery Social History Smoking Status: Never smoker second hand exposure: No alcohol intake: current alcohol intake frequency: a few times a month substance use type: does not use caffeine: Yes what type of physical activity do you participate in: walking and running frequency: 5-6 times per week duration: 30-45 minutes/day seatbelt use: always Review of Systems (Anesthesia) ROS Narrative System reviewed and no additional complaints, except as documented.
--- NOTE | 2024-10-27 07:00 | EGD_PTH ---
PATIENT: VALERY REINA LOC: EN U#:[id number] AGE/SX: 69/F ROOM: RE10/27/[address]: Dr. Nestor Medina DO : 1955 BED: DIS: 10/27/2024 SPEC #: [id number] RECD: 10/27/24 08:08 STATUS: SHADI LEONEL #: [id number] SHIRLEY: 10/27/24 07:[address]: Nestor Medina DEPT: SURGICAL PATHOLOGY RECD BY: Bill Wills ENTERED: 10/27/24 09:44 SP TYPE: EGD BIOPSY ANIA DR: Dr. Francisco J Lozano MD Tissues: A - Esophagus, NOS B - Gastric mucous membrane Procedures: Surgery Specimen Level IV HEADER OPERATION: EGD with biopsy, dilation PRE-OP DIAGNOSIS: Dysphagia, GERD TISSUE SUBMITTED: A- Distal esophagus biopsy, B- Gastric body biopsy MICROSCOPIC DIAGNOSIS A. Esophagus, distal, biopsy: * Squamous mucosa with reactive change and rare eosinophils. * Columnar mucosa negative for goblet cell metaplasia. * Negative for dysplasia. B. Stomach, body, biopsy: * Oxyntic mucosa with features of reactive gastropathy. * Negative for Helicobacter-like organisms (H&E). MICROSCOPIC DESCRIPTION Slides are reviewed. GROSS DESCRIPTION A. Received in formalin in a container labeled with the patient's name, date of , and distal esophagus biopsy are multiple dunn-pink fragments of mucosal tissue measuring 0.8 x 0.4 x 0.3 cm in aggregate. Submitted in toto in A1. B. Received in formalin in a container labeled with the patient's name, date of , and gastric body biopsy are 2 dunn-pink fragments of mucosal tissue, each measuring 0.5 x 0.4 x 0.3 cm. Submitted in toto in B1. [facility] 10-27-2024 CPT:15451x2
--- NOTE | 2024-10-27 07:04 | PCM.HP.STD ---
HPI - General General Date of Admission: 10/27/24 Date of Service: 10/27/24 Chief Complaint: Esophageal food impaction HPI Narrative VALERY REINA, is a 69 F who presents to the office today for establishment with I following an ER visit for food impaction. She states that on Saturday this week she had a pork steak sandwich and felt tightness midsternum immediately following a bite of food. She tried to burp it out but couldn't, she was able to swallow soft foods and fluid around the trapped food. She could not relieve the pressure. She came in to [facility] ER on Saturday to check on her stomach and food impaction. Chest CT was done with IV contrast, no PO. Trachea was not displaced on imaging. She had a Jose J fundoplication performed in 07/2023 in order to be taken off of PPIs d/t her increased family history and personal risk for developing dementia. She had been on omeprazole 40mg daily for over 30 years. She is asking for a 100% guarantee that her Jose J surgery is intact. She reports having had her esophagus dilated twice, but all before her Jose J. She has multiple seasonal allergies and had a physician suggest that her allergies have something to do with her narrowing esophagus. She is adamant that she will not go back on PPI therapy for any duration, states that's the whole reason I had this surgery. I prefer to know 100% that my surgery is intact. I don't want to take any more medication. Today she did reports that she was able to eat soft eggs for breakfast without difficulty. [facility] Medical History Dietary restriction Pneumonia Osteoporosis Osteopenia Hormone deficiency Hives Hearing problem UTI (urinary tract infection) Seasonal allergies Wears hearing aid Cancer Post-menopausal Alcohol use Arthritis History of hiatal hernia Gastric reflux Non-smoker Cardiology follow-up encounter History of stress test Wears glasses Dysphagia Essential hypertension Meniere syndrome GERD (gastroesophageal reflux disease) Hyperlipidemia Screening for intestinal cancer Skin cancer SOB (shortness of breath) Anemia Ocular rosacea Home Medications ?Medication ?Instructions ?Recorded ?Last Taken ?Type multivitamin 1 tab PO DAILY 08/05/18 10/22/24 History triamterene 37.5 1 cap PO DAILY 08/05/18 10/26/24 History mg-hydrochlorothiazide 25 mg capsule (Dyazide) cholecalciferol (vitamin D3) 50 2,000 unit PO DAILY 03/29/20 10/22/24 History mcg (2,000 unit) capsule calcium carbonate (Calcium 600) 600 mg PO DAILY 10/21/24 10/22/24 History loratadine 10 mg tablet 10 mg PO DAILY 10/21/24 10/26/24 History (Allerclear) Allergy/AdvReac Type Severity Reaction Status Date / Time latex Allergy Unknown Rash Verified 10/27/24 06:22 meperidine (From Demerol) Allergy Unknown Nausea/Vom/ Verified 10/27/24 06:22 Diarrhea terbinafine (From Lamisil) Allergy Unknown Rash Verified 10/27/24 06:22 Family History Mother Heart disease Hypertension Thyroid disorder CVA (cerebral vascular accident) High cholesterol Father COPD (chronic obstructive pulmonary disease) Brother Diabetes Surgical History History of Jose J fundoplication History of esophagogastroduodenoscopy (EGD) History of left heart catheterization (08/03/21) History of esophagogastroduodenoscopy (EGD) History of colonoscopy (2019) History of esophageal dilatation History of Mohs micrographic surgery for skin cancer Hx of shoulder surgery Hx of hysterectomy Hx of eye surgery Social History Smoking Status: Never smoker second hand exposure: No alcohol intake: current alcohol intake frequency: a few times a month substance use type: does not use caffeine: Yes what type of physical activity do you participate in: walking and running frequency: 5-6 times per week duration: 30-45 minutes/day seatbelt use: always ROS Constitutional Constitutional: Denies fatigue, fever(s), poor appetite, weight gain or weight loss Gastrointestinal Gastrointestinal: Denies belching, bloating, change in bowel habits, change in stool character, chewing difficulty, coffee ground emesis, constipation, cramping, diarrhea, dyspepsia, dysphagia, early satiety, excessive flatus, fecal incontinence, heartburn, hematemesis, hematochezia, hemorrhoids, loose stools, melena, nausea, odynophagia, rectal bleeding, tenesmus, vomiting or weight changes Vital Signs Vital Signs Vital Signs: 10/27/24 06:24 10/27/24 06:25 10/27/24 06:55 Temperature 97.3 F L 97.3 F L Temperature Source Temporal Pulse Rate 51 L 51 L Respiratory Rate 18 18 Respiratory Pattern Normal Blood Pressure 132/77 H 132/77 H Blood Pressure Mean 95 Blood Pressure Source Monitor Blood Pressure Position Semi-Fowlers Blood Pressure Location Left Arm Pulse Ox 100 100 Oxygen Delivery Method Room Air Room Air Weight Weight: 158 lb Body Mass Index (BMI) 28.0 Physical Exam Const alert, oriented x3, no apparent distress and healthy appearing General Appearance: cooperative GI normal to inspection, nondistended, normoactive bowel sounds, soft to palpation, non-tender and non-distended Percussion: normal to percussion Rectal Exam: deferred Assessment & Plan Assessment/Plan (1) Food impaction of esophagus: QUALIFIERS: Encounter type: initial encounter Qualified Code(s): T18.128A - Food in esophagus causing other injury, initial encounter; W44.F3XA - Food entering into or through a natural orifice, initial encounter (2) GERD (gastroesophageal reflux disease): QUALIFIERS: Esophagitis presence: esophagitis presence not specified Qualified Code(s): K21.9 - Gastro-esophageal reflux disease without esophagitis PLAN: Assessment and Plan Assessment and Plan (1) Dysphagia: Status: Acute Qualifiers: Dysphagia type: esophageal phase Qualified Code(s): R13.19 - Other dysphagia (2) GERD (gastroesophageal reflux disease): Status: Acute Qualifiers: Esophagitis presence: esophagitis presence not specified Qualified Code(s): K21.9 - Gastro-esophageal reflux disease without esophagitis (3) Food impaction of esophagus: Status: Acute Qualifiers: Encounter type: initial encounter Qualified Code(s): T18.128A - Food in esophagus causing other injury, initial encounter; W44.F3XA - Food entering into or through a natural orifice, initial encounter Plan VALERY REINA, is a 69 F who presents to the office today for establishment with [facility] following an ER visit for food impaction. Differential diagnoses include: EoE, esophageal dysmotility, esophagitis. Discussed care plan with her and her . She firmly refuses PPI therapy, even for a short time, despite being primary treatment per guidelines. I offered short treatment of budesonide and she refused this as well. She wants to have EGD quickly and then we can talk about treatments. schedule EGD w/possible dilation CHENCHO, or place on cancellation list discussed risks of endoscopy office FU with results
--- NOTE | 2024-10-27 07:38 | PCM.POST.ANE ---
Anesthesia: Postop Eval I Current Vital Signs Temperature: 97.2 F Pulse Rate: 57 Blood Pressure: 110/64 Respiratory Rate: 16 Pulse Ox: 99 Oxygen Delivery Method: Room Air Assessment Airway patent: Yes Spontaneous unlabored respirations: Yes Mental status: Awake nausea: No Vomiting: No Anesthesia Complication: No Fluid Hydration Crystalloid volume administer (ml): 300 Total IV fluid infused: 300 Progress Note Anesthesia document: Postop Eval 1 completed: Yes
--- NOTE | 2024-10-27 07:43 | OP.EGD_ITS ---
Patient Name: Olivia Orozco Procedure Date: 10/27/2024 7:12 AM Date of : 1955 Age: 69 Procedure: Upper GI endoscopy Indications: Dysphagia Providers: Nestor Medina DO Referring MD: Francisco J Lozano Medicines: Monitored Anesthesia Care Patient Profile: This is a 69 year old female. Refer to note in patient chart for documentation of history and physical. Patient has symptoms of dysphagia with both liquids and solids. Complications: No immediate complications. Procedure: Pre-Anesthesia Assessment: - Prior to the procedure, a History and Physical was performed, and patient medications and allergies were reviewed. The patient is competent. The risks and benefits of the procedure and the sedation options and risks were discussed with the patient. All questions were answered and informed consent was obtained. Patient identification and proposed procedure were verified by the physician in the pre-procedure area. Mental Status Examination: alert and oriented. Airway Examination: normal oropharyngeal airway and neck mobility. Respiratory Examination: clear to auscultation. CV Examination: normal. Prophylactic Antibiotics: The patient does not require prophylactic antibiotics. Prior Anticoagulants: The patient has taken no anticoagulant or antiplatelet agents except for NSAID medication. ASA Grade Assessment: II - A patient with mild systemic disease. After reviewing the risks and benefits, the patient was deemed in satisfactory condition to undergo the procedure. The anesthesia plan was to use monitored anesthesia care (MAC). Immediately prior to administration of medications, the patient was re-assessed for adequacy to receive sedatives. The heart rate, respiratory rate, oxygen saturations, blood pressure, adequacy of pulmonary ventilation, and response to care were monitored throughout the procedure. The physical status of the patient was re-assessed after the procedure. After obtaining informed consent, the endoscope was passed under direct vision. Throughout the procedure, the patient's blood pressure, pulse, and oxygen saturations were monitored continuously. The Endoscope was introduced through the mouth, and advanced to the second part of duodenum. The upper GI endoscopy was accomplished without difficulty. The patient tolerated the procedure well. Scope In: 7:21:57 AM Scope Out: 7:28:30 AM Total Procedure Duration Time 0 hours 6 minutes 33 seconds Findings: The Z-line was irregular and was found 40 cm from the incisors. Biopsies were taken with a cold forceps for histology. No biopsies or other specimens were collected for this exam. One benign-appearing, intrinsic moderate (circumferential scarring or stenosis; an endoscope may pass) stenosis was found 38 to 40 cm from the incisors. This stenosis measured 5 cm (in length). The stenosis was traversed. A guidewire was placed and the scope was withdrawn. Dilation was performed with a Savary dilator with no resistance at 60 Fr. The dilation site was examined and showed moderate improvement in luminal narrowing. Estimated blood loss was minimal. Patchy mild inflammation characterized by erosions was found in the gastric body. Biopsies were taken with a cold forceps for histology. Verification of patient identification for the specimen was done. Estimated blood loss was minimal. The second portion of the duodenum was normal. Impression: - Z-line irregular, 40 cm from the incisors. Biopsied. No specimens collected. - Benign-appearing esophageal stenosis. Dilated. - Gastritis. Biopsied. - Normal second portion of the duodenum. Recommendation: - Discharge patient to home. - Resume previous diet. - Continue present medications. - Await pathology results. Procedure Code(s): --- Professional --- 71040, Esophagogastroduodenoscopy, flexible, transoral; with insertion of guide wire followed by passage of dilator(s) through esophagus over guide wire 88219, 59,51, Esophagogastroduodenoscopy, flexible, transoral; with biopsy, single or multiple CPT copyright 2021 [employer]. All rights reserved. The codes documented in this report are preliminary and upon brick extruder operator review may be revised to meet current compliance requirements. Nestor Medina DO 10/27/2024 7:43:11 AM This report has been signed electronically. Number of Addenda: 0 Note Initiated On: 10/27/2024 7:12 AM
--- NOTE | 2024-10-27 07:44 | OP.CCLET_ITS ---
10/27/2024 Francisco J Lozano [address] [place] [address] Re : Upper GI endoscopy procedure for Olivia Orozco Dear Dr. Lozano This procedure was performed on Sunday, October 27, 2024. My impressions and recommendations are as follows: Impressions : - Z-line irregular, 40 cm from the incisors. Biopsied. No specimens collected. - Benign-appearing esophageal stenosis. Dilated. - Gastritis. Biopsied. - Normal second portion of the duodenum. Recommendations : - Discharge patient to home. - Resume previous diet. - Continue present medications. - Await pathology results. My findings are described in the full procedure note, which is enclosed. If I can be of further assistance, please feel free to contact me at . Sincerely, Nestor Medina, 10/27/2024 7:43:11 AM This report has been signed electronically.
--- NOTE | 2024-10-27 07:54 | PCM.POSTANE2 ---
Anesthesia Postop Eval I Sum Postop Eval Completion status Anesthesia document: Postop Eval 1 completed: Yes Anesthesia Postop Eval I Summary Anesthesia Postop Eval I Summary: Anesthesia Postop Eval I: Assessment Summary Airway patent Yes 10/27/24 07:39 [email or web address] Spontaneous unlabored Yes 10/27/24 07:39 [email or web address] respirations Mental status Awake 10/27/24 07:39 [email or web address] nausea No 10/27/24 07:39 [email or web address] Vomiting No 10/27/24 07:39 [email or web address] Anesthesia Postop Eval I: Fluid Summary Crystalloid volume administer 300 10/27/24 07:39 [email or web address] (ml) Colloids volume administered ( ml) Blood Product volume administered (ml) Total IV fluid infused 300 10/27/24 07:39 [email or web address] Anesthesia Postop Eval I: Summary Notes Anesthesia Complication No 10/27/24 07:39 [email or web address] Anesthesia Complication Comment: Post-operative progress note Anesthesia: Postop Eval II Evaluation Mental status: Awake and Calm Pain Level: 0 nausea: No Vomiting: No Complications Anesthesia Complication: No
== END 2024-10-27 08:19 | disposition home or self-care (01) ==
LOC: EN 05:57 → AC 05:58
PROVIDERS: PCP Family Medicine; Referring Provider Family Medicine; Visit Provider Internal Medicine Gastroenterology
PROC: 0DJ08ZZ Inspection of Upper Intestinal Tract, Via Natural or Artificial Opening Endoscopic (ICD-10-PCS; CPT 43235; principal; 2024-10-27 06:55)
DX: T18.128A Food in esophagus causing other injury, initial encounter (principal); K21.9 Gastro-esophageal reflux disease without esophagitis; K29.70 Gastritis, unspecified, without bleeding; E78.5 Hyperlipidemia, unspecified; I10 Essential (primary) hypertension; K22.2 Esophageal obstruction; R13.10 Dysphagia, unspecified; Z85.828 Personal history of other malignant neoplasm of skin; Z90.710 Acquired absence of both cervix and uterus; K22.89 Other specified disease of esophagus
CPT/HCPCS: 43248; 43239; 88305; C1769; J2405

== ENCOUNTER → 2025-01-05 | Outpatient (CLI) | payer MEDICARE, OTHER, SELFPAY ==
[2025-01-09 04:07] LABS: Egg, Whole <0.10 kU/L (Class 0); Mussels <0.10 kU/L (Class 0)
== END | disposition home or self-care (01) ==
LOC: LAB 09:56
PROVIDERS: PCP Family Medicine
DX: R13.19 Other dysphagia (principal); D72.18 Eosinophilia in diseases classified elsewhere; T18.128A Food in esophagus causing other injury, initial encounter; W44.F3XA Food entering into or through a natural orifice, initial encounter
CPT/HCPCS: 36415; 86003; 86005

== ENCOUNTER → 2025-03-31 | Outpatient (CLI) | payer MEDICARE, OTHER, SELFPAY ==
--- NOTE | 2025-03-31 10:01 | BI_ITS ---
EXAM: SCRN MAMM (CAD)W/ISRAEL BILAT DATE: 03/31/2025 CLINICAL HISTORY: F, Age 69 y/o , SCREENING No family history. History of prior left ultrasound-guided breast biopsy. TECHNIQUE: Procedure Code: [id number] Modality: MG Procedure: SCRN MAMM (CAD)W/ISRAEL BILAT COMPARISON: Prior exam(s) dated March 17, 2024.. FINDINGS: TISSUE DENSITY: The breasts are heterogeneously dense, which may obscure small masses. Bilateral Breast Mammographic Findings: No significant masses, calcifications or other abnormalities are identified. A tissue clip marker is once again seen within a 7 mm well-defined nodule in the deep inferior medial aspect of the left breast. No suspicious masses, areas of developing architectural distortion, or suspicious calcifications. There has been no significant interval change. BI/SCRN MAMM (CAD)W/ISRAEL BILAT IMPRESSION: Stable bilateral screening mammogram. OVERALL FINAL ASSESSMENT BI-RADS 2: BENIGN RECOMMENDATION: Routine annual follow-up in 1 Year Additional Recommendation none A letter with findings and recommendations will be mailed to the patient. Reading Location: [id number]
== END | disposition home or self-care (01) ==
PROVIDERS: PCP Family Medicine; Referring Provider Family Medicine; Visit Provider Family Medicine
DX: Z12.31 Encounter for screening mammogram for malignant neoplasm of breast (principal)
CPT/HCPCS: 77063; 77067